=== PATIENT | female | born 1970 | race American Indian/Alaskan Native ===

== ENCOUNTER 2016-11-09 17:55 | Emergency (ER) | payer OTHER ==
[2016-11-09] MEDS ORDERED: CATAPRES PO ONE ×2 (22:54→23:07)
[2016-11-09] MEDS ORDERED: FLEXERIL PO ONE (23:07)
[2016-11-09] MEDS ORDERED: TORADOL IM ONE (23:07)
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
--- NOTE | 2016-11-10 01:55 | Cat Scan Report ---
FINAL REPORT EXAM: CT HEAD/BRAIN WO CON HISTORY: high BP and HOWELL TECHNIQUE: Noncontrast CT axial images of the brain. PRIORS: None. FINDINGS: No parenchymal mass, mass effect, hemorrhage, midline shift or hydrocephalus. No evidence of acute cortical infarct. No abnormal, extra-axial fluid or air collection. Osseous calvarium grossly intact. IMPRESSION: 1. No acute intracranial findings.
[2016-11-10 02:16] VITALS: BP 151/89
== END 2016-11-10 02:53 | disposition home or self-care (01) ==
LOC: ED 17:55
DX: R51 Headache (principal); S16.1XXA Strain of muscle, fascia and tendon at neck level, initial encounter; S46.911A Strain of unspecified muscle, fascia and tendon at shoulder and upper arm level, right arm, initial encounter; S39.012A Strain of muscle, fascia and tendon of lower back, initial encounter; I10 Essential (primary) hypertension; Z79.899 Other long term (current) drug therapy; Z79.1 Long term (current) use of non-steroidal anti-inflammatories (NSAID); V89.2XXA Person injured in unspecified motor-vehicle accident, traffic, initial encounter; Y93.89 Activity, other specified; Y99.8 Other external cause status; Y92.488 Other paved roadways as the place of occurrence of the external cause
CPT/HCPCS: 70450; 81025; 96372; 99284; J1885

== ENCOUNTER 2021-09-30 00:20 | Inpatient (IN) | payer SELFPAY ==
[2021-09-30] MEDS ORDERED: SODIUM CHLORIDE 0.9% 1000 ML 1,000 ML IV ONE (00:34)
--- NOTE | 2021-09-30 00:40 | Emergency Department Report ---
ED Altered Mental Status HPI - General Stated Complaint: ALTERED MENTAL STATUS PUI?: No Time Seen by Provider: 09/30/21 00:29 Source: patient, EMS Limitations: No Limitations - History of Present Illness Initial Comments: Chief complaint: Altered mental status, high blood sugar HPI: This is a 51-year-old female with history of non insulin dependent diabetes, hypertension who presents with altered mental status. Patient initially unable to answer questions per EMS. Patient was able to answer my questions. She denies any pain. She is able to tell her name. She is able to give location. Accu-Chek read "high" per EMS report. Family member called emergency department. Family member reported abscess in the vaginal rectal region. Patient did admit to pelvic irritation after being questioned. MD Complaint: altered mental status -: Gradual, hour(s) (1 hour) Consistency of Symptoms: waxing and waning Context: diabetes Associated Symptoms: denies other symptoms Treatments Prior to Arrival: other pre-hosp med (EMS transportation) - Related Data Previous Rx's Medication Instructions Recorded Last Taken Type Cyclobenzaprine [Flexeril] 10 mg PO TID PRN #20 tablet 11/10/16 Unknown Rx Ibuprofen [Motrin 600 MG tab] 600 mg PO Q8H PRN #30 tablet 11/10/16 Unknown Rx carvediloL [Coreg] 12.5 mg PO BID #60 tablet 11/10/16 Unknown Rx Allergies Allergy/AdvReac Type Severity Reaction Status Date / Time No Known Allergies Allergy Unverified 11/09/16 18:31 ED Review of Systems ROS: Stated complaint: ALTERED MENTAL STATUS Other details as noted in HPI Comment: All other systems reviewed and negative Constitutional: malaise Respiratory: denies: cough, shortness of breath Cardiovascular: denies: chest pain Gastrointestinal: denies: abdominal pain, nausea, vomiting ED Past Medical Hx - Past Medical History Previous Medical History?: Yes Hx Hypertension: Yes Hx Diabetes: Yes - Surgical History Past Surgical History?: No - Family History Family history: diabetes, hypertension - Social History Smoking Status: Never Smoker Substance Use Type: None - Medications Home Medications: Home Medications Medication Instructions Recorded Confirmed Last Taken Type Cyclobenzaprine [Flexeril] 10 mg PO TID PRN #20 tablet 11/10/16 Unknown Rx Ibuprofen [Motrin 600 MG tab] 600 mg PO Q8H PRN #30 tablet 11/10/16 Unknown Rx carvediloL [Coreg] 12.5 mg PO BID #60 tablet 11/10/16 Unknown Rx ED Physical Exam - General General appearance: alert, other (Slightly lethargic but able to answer que stions, appears delirious) - Head Head exam: Present: atraumatic, normocephalic - Eye Eye exam: Present: normal appearance - ENT ENT exam: Present: mucous membranes moist - Neck Neck exam: Present: normal inspection, full ROM - Respiratory Respiratory exam: Present: normal lung sounds bilaterally. Absent: respiratory distress, wheezes, rales, rhonchi - Cardiovascular Cardiovascular Exam: Present: regular rate, normal rhythm, normal heart sounds. Absent: systolic murmur, diastolic murmur, rubs, gallop - GI/Abdominal GI/Abdominal exam: Present: soft, normal bowel sounds. Absent: distended, tenderness, guarding, rebound - External exam: Present: other (Diffuse erythematous excoriation irritated skin involving the perineum suprapubic perirectal regions with skin ulcer at the right gluteus with purulent drainage ) - Extremities Exam Extremities exam: Present: normal inspection - Back Exam Back exam: Present: normal inspection - Neurological Exam Neurological exam: Present: alert, oriented X3 - Psychiatric Psychiatric exam: Present: normal affect, normal mood - Skin Skin exam: Present: rash ED Course - Reevaluation(s) Reevaluation #1: 09/30/21 02:31 Received values of lactic acid 4.8 and glucose greater than 1200. Requested patient is wait to initiate sepsis order set and DKA treatment - Lab Data Result diagrams: 09/30/21 00:54 09/30/21 00:54 Lab Results 09/30/21 09/30/21 09/30/21 Range/Units 00:54 00:54 00:54 WBC 16.9 H (4.5-11.0) K/mm3 RBC 5.14 H (3.65-5.03) M/mm3 Hgb 13.2 (10.1-14.3) gm/dl Hct 46.0 H (30.3-42.9) % MCV 90 (79-97) fl MCH 26 L (28-32) pg MCHC 29 L (30-34) % RDW 14.8 (13.2-15.2) % Plt Count 583 H (140-440) K/mm3 Lymph % (Auto) 7.0 L (13.4-35.0) % [place] % (Auto) 6.8 (0.0-7.3) % Eos % (Auto) 0.1 (0.0-4.3) % Baso % (Auto) 0.8 (0.0-1.8) % Lymph # (Auto) 1.2 (1.2-5.4) K/mm3 [place] # (Auto) 1.1 H (0.0-0.8) K/mm3 Eos # (Auto) 0.0 (0.0-0.4) K/mm3 Baso # (Auto) 0.1 (0.0-0.1) K/mm3 Seg Neutrophils % 85.3 H (40.0-70.0) % Seg Neutrophils # 14.4 H (1.8-7.7) K/mm3 PT (12.2-14.9) Sec. INR (0.87-1.13) VBG pH (7.320-7.420) Sodium 144 (137-145) mmol/L Potassium 3.8 (3.6-5.0) mmol/L Chloride 92.6 L (98-107) mmol/L Carbon Dioxide 17 L (22-30) mmol/L Anion Gap 38 mmol/L BUN 33 H (7-17) mg/dL Creatinine 1.7 H (0.6-1.2) mg/dL Estimated GFR 38 ml/min BUN/Creatinine Ratio 19 % Glucose 1245 H* (65-100) mg/dL Lactic Acid 4.80 H* (0.7-2.0) mmol/L Calcium 9.5 (8.4-10.2) mg/dL Total Bilirubin 0.60 (0.1-1.2) mg/dL AST 17 (5-40) units/L ALT 27 (7-56) units/L Alkaline Phosphatase 123 (35-129) units/L Total Protein 8.0 (6.3-8.2) g/dL Albumin 3.3 L (3.9-5) g/dL Albumin/Globulin Ratio 0.7 % Salicylates (2.8-20.0) mg/dL Acetaminophen (10.0-30.0) ug/mL Plasma/Serum Alcohol (0-0.07) % 09/30/21 09/30/21 09/30/21 Range/Units 00:54 00:54 00:54 WBC (4.5-11.0) K/mm3 RBC (3.65-5.03) M/mm3 Hgb (10.1-14.3) gm/dl Hct (30.3-42.9) % MCV (79-97) fl MCH (28-32) pg MCHC (30-34) % RDW (13.2-15.2) % Plt Count (140-440) K/mm3 Lymph % (Auto) (13.4-35.0) % [place] % (Auto) (0.0-7.3) % Eos % (Auto) (0.0-4.3) % Baso % (Auto) (0.0-1.8) % Lymph # (Auto) (1.2-5.4) K/mm3 [place] # (Auto) (0.0-0.8) K/mm3 Eos # (Auto) (0.0-0.4) K/mm3 Baso # (Auto) (0.0-0.1) K/mm3 Seg Neutrophils % (40.0-70.0) % Seg Neutrophils # (1.8-7.7) K/mm3 PT 15.7 H (12.2-14.9) Sec. INR 1.13 (0.87-1.13) VBG pH (7.320-7.420) Sodium (137-145) mmol/L Potassium (3.6-5.0) mmol/L Chloride (98-107) mmol/L Carbon Dioxide (22-30) mmol/L Anion Gap mmol/L BUN (7-17) mg/dL Creatinine (0.6-1.2) mg/dL Estimated GFR ml/min BUN/Creatinine Ratio % Glucose (65-100) mg/dL Lactic Acid (0.7-2.0) mmol/L Calcium (8.4-10.2) mg/dL Total Bilirubin (0.1-1.2) mg/dL AST (5-40) units/L ALT (7-56) units/L Alkaline Phosphatase (35-129) units/L Total Protein (6.3-8.2) g/dL Albumin (3.9-5) g/dL Albumin/Globulin Ratio % Salicylates < 0.3 L (2.8-20.0) mg/dL Acetaminophen (10.0-30.0) ug/mL Plasma/Serum Alcohol < 0.01 (0-0.07) % 09/30/21 09/30/21 09/30/21 Range/Units 00:54 00:54 02:15 WBC (4.5-11.0) K/mm3 RBC (3.65-5.03) M/mm3 Hgb (10.1-14.3) gm/dl Hct (30.3-42.9) % MCV (79-97) fl MCH (28-32) pg MCHC (30-34) % RDW (13.2-15.2) % Plt Count (140-440) K/mm3 Lymph % (Auto) (13.4-35.0) % [place] % (Auto) (0.0-7.3) % Eos % (Auto) (0.0-4.3) % Baso % (Auto) (0.0-1.8) % Lymph # (Auto) (1.2-5.4) K/mm3 [place] # (Auto) (0.0-0.8) K/mm3 Eos # (Auto) (0.0-0.4) K/mm3 Baso # (Auto) (0.0-0.1) K/mm3 Seg Neutrophils % (40.0-70.0) % Seg Neutrophils # (1.8-7.7) K/mm3 PT (12.2-14.9) Sec. INR (0.87-1.13) VBG pH 7.246 L (7.320-7.420) Sodium (137-145) mmol/L Potassium (3.6-5.0) mmol/L Chloride (98-107) mmol/L Carbon Dioxide (22-30) mmol/L Anion Gap mmol/L BUN (7-17) mg/dL Creatinine (0.6-1.2) mg/dL Estimated GFR ml/min BUN/Creatinine Ratio % Glucose (65-100) mg/dL Lactic Acid 4.10 H* (0.7-2.0) mmol/L Calcium (8.4-10.2) mg/dL Total Bilirubin (0.1-1.2) mg/dL AST (5-40) units/L ALT (7-56) units/L Alkaline Phosphatase (35-129) units/L Total Protein (6.3-8.2) g/dL Albumin (3.9-5) g/dL Albumin/Globulin Ratio % Salicylates (2.8-20.0) mg/dL Acetaminophen 5.0 L (10.0-30.0) ug/mL Plasma/Serum Alcohol (0-0.07) % - Radiology Data Radiology results: report reviewed Patient Name: FELIBERTO DIAMOND Gender: Female Date of : 1970 Referring Provider: MARCELLE BECERRA Organization: [facility] Accession Number: [id number] Requested Date: September 30, 2021 03:18 Report Status: Final Requested Procedure: 1 Procedure Description: CT head/brain wo con Modality: CT Findings Reporting MD: Isma Chandra Dictation Time: September 30, 2021 02:58 [employer] Dispatcher: Not available English Faculty Member Date: CT head without contrast INDICATION : Altered Mental Status. TECHNIQUE: Axial imaging performed from the skull apex through the skull base without the use of contrast. All CT scans at this location are performed using CT dose reduction for ALARA by means of automated exposure control. COMPARISON: None FINDINGS: Parenchyma: No acute intracranial hemorrhage or parenchymal abnormality. Ventricles: Ventricles are normal in size and appear symmetric. Soft tissues: Soft tissues including the orbits appear normal. Bones: No acute osseous abnormality. Sinuses: Sinuses and mastoid air cells are clear. IMPRESSION: No acute abnormality. Signer Name: Isma Chandra MD Signed: 09/30/2021 2:58 AM Workstation Name: [id number] Patient Name: FELIBERTO DIAMOND Gender: Female Date of : 1970 Referring Provider: MARCELLE BECERRA Organization: [facility] Accession Number: [id number] Requested Date: September 30, 2021 03:26 Report Status: Final Requested Procedure: 1 Procedure Description: CT abdomen pelvis w con Modality: CT Findings Reporting MD: Isma Chandra Dictation Time: September 30, 2021 03:00 [employer] Dispatcher: Not available English Faculty Member Date: CT ABDOMEN AND PELVIS WITH CONTRAST HISTORY: Cellulitis RIGHT gluteal ulcer, possible fistula. COMPARISON: None. TECHNIQUE: CT images of the abdomen and pelvis were obtained following administration of intravenous contrast. All CT scans at this location are performed using CT dose reduction for ALARA by means of automated exposure control. CONTRAST: 100 ml of intravenous contrast administered. FINDINGS: Lungs/bones: Lung bases are clear. There are degenerative changes in the spine and pelvis with no acute osseous abnormality identified. Abdomen/pelvis: There is hepatic steatosis. The liver is otherwise unremarkable. The gallbladder, spleen, pancreas, adrenals, right kidney, and proximal GI tract appear normal. There is mild left-sided hydronephrosis tracking to the distal ureter where a left paracentral uterine fibroid directly abuts the ureter decompresses the. The ovaries are unremarkable. No pelvic free fluid or acute colonic abnormality identified. The appendix and terminal ileum appear normal. IMPRESSION: 1. Mild left-sided hydronephrosis caused by mass effect from a left paracentral uterine fibroid. 2. No appreciable right gluteal ulcer or subcutaneous gas demonstrated on this exam. Signer Name: Isma Chandra MD Signed: 09/30/2021 3:00 AM Workstation Name: [id number] - Medical Decision Making 1. Acute encephalopathy due to metabolic cause of hyperglycemia and infectious cause of delirium. 2. Sepsis due to superimposed cellulitis, purulence exuding from right gluteal ulcer concerning for fistula 3. Diffuse candidal infection 4. Uterine fibroid causing mild hydronephrosis unclear chronology, no indication of pyonephrosis such as debris layering, perinephric stranding. - Differential Diagnosis Metabolic encephalopathy due to uremia versus metabolic acidosis, delirium Critical Care Time: Yes Critical care time in (mins) excluding proc time.: 40 Critical care attestation.: If time is entered above; I have spent that time in minutes in the direct care of this critically ill patient, excluding procedure time. 40 minutes of critical care time excluding procedures were used in the care of the patient. I came immediately to the bedside upon patient's arrival. I obtained history from EMS at the bedside. I discussed treatment plan with the nursing team members. I reviewed electronic record. I was concerned for sepsis. There is concern for DKA. Patient required multiple interventions and reassessments. ED Disposition Clinical Impression: Sepsis, Cellulitis and abscess of buttock, Candidiasis of genitalia, Acute m etabolic encephalopathy, Diabetic ketoacidosis, Uterine fibroid Disposition: 09 ADMITTED INPATIENT Is pt being admited?: Yes Condition: Critical
--- NOTE | 2021-09-30 00:56 | XRay Report ---
CHEST 1 VIEW INDICATION: Altered Mental Status. COMPARISON: None FINDINGS: SUPPORT DEVICES: None. HEART: Within normal limits. LUNGS/PLEURA: No acute air space or interstitial disease. ADDITIONAL FINDINGS: None. IMPRESSION: 1. No acute findings. Signer Name: Isma Chandra MD Signed: 09/30/2021 12:51 AM Workstation Name: [id number]
[2021-09-30] MEDS ORDERED: CLINDAMYCIN 600 MG/50 mL 600 MG/50 ML BAG IV ONE (01:02)
[2021-09-30 01:33] LABS: Albumin 3.3 g/dL (3.9-5); Calcium 9.5 mg/dL (8.4-10.2)
[2021-09-30] MEDS ORDERED: FLUCONAZOLE 200 MG 200 MG/100 ML BAG IV ONE (01:33)
[2021-09-30 01:44] LABS: Basophils # (Auto) 0.1 K/mm3 (0.0-0.1); Eosinophils % (Auto) 0.1 % (0.0-4.3); Lymphocytes # (Auto) 1.2 K/mm3 (1.2-5.4); Mean Corpuscular HGB Conc 29 % (30-34); Mean Corpuscular Volume 90 fl (79-97); Monocytes # (Auto) 1.1 K/mm3 (0.0-0.8); Monocytes % (Auto) 6.8 % (0.0-7.3); Platelet Count 583 K/mm3 (140-440); Red Blood Count 5.14 M/mm3 (3.65-5.03); Red Cell Distribution Width 14.8 % (13.2-15.2)
[2021-09-30 01:46] LABS: Basophils % (Auto) 0.8 % (0.0-1.8); Hemoglobin 13.2 gm/dl (10.1-14.3)
[2021-09-30 01:50] LABS: INR 1.13 (0.87-1.13)
[2021-09-30] MEDS ORDERED: SODIUM CHLORIDE 0.9% 1000 ML IV SOLN IV ONE (02:31)
[2021-09-30] MEDS ORDERED: INSULIN REGULAR, HUMAN 100 UNITS in SODIUM CHLORIDE 0.9% 99 ML IV SCH (03:00)
[2021-09-30] MEDS ORDERED: HYDROmorphone 1 MG/1 ML INJ IV PRN (03:23)
[2021-09-30] MEDS ORDERED: ALBUTEROL 2.5 MG/3 ML NEBU IH PRN (03:23)
[2021-09-30] MEDS ORDERED: ACETAMINOPHEN 325 MG TAB PO PRN (03:23)
[2021-09-30] MEDS ORDERED: ONDANSETRON 4 MG/2 ML INJ IV PRN (03:23)
[2021-09-30] MEDS ORDERED: DEXTROSE 50% IN WATER (25GM) 50 ML SYRINGE IV PRN (03:23)
[2021-09-30] MEDS ORDERED: MORPHINE 2 MG/1 ML INJ IV PRN (03:23)
--- NOTE | 2021-09-30 03:32 | History and Physical Report ---
History of Present Illness Date of examination: 09/30/21 Date of admission: 09/30/21 Chief complaint: Altered mental status Hyperglycemia History of present illness: 51-year-old female with history of insulin dependent diabetes, hypertension was brought to the emergency room because of altered mental status. Patient initially unable to answer questions per EMS. Patient was able to answer my questions. She denies any pain. She is able to tell her name. She is able to give location. Accu-Chek read "high" per EMS report.Family member called emergency department. Family member reported abscess in the vaginal rectal region. In the emergency room patient is found to have DKA and sepsis. Patient blood glucose is 1245, anion gap 38 bicarb 17 lactic acid 4.80, WBC 16.9. Patient has abscess cellulitis of the buttock So we are going to admit the patient to the ICU. We put the patient on DKA pathway, IV fluid and insulin drip, Zosyn 4.5 g IV every 8 hours and vancomycin we will consult critical care as well as surgery for evaluation Past History Past Medical History: diabetes, hypertension Medications and Allergies Allergies Allergy/AdvReac Type Severity Reaction Status Date / Time No Known Allergies Allergy Unverified 11/09/16 18:31 Home Medications Medication Instructions Recorded Confirmed Last Taken Type Cyclobenzaprine [Flexeril] 10 mg PO TID PRN #20 tablet 11/10/16 Unknown Rx Ibuprofen [Motrin 600 MG tab] 600 mg PO Q8H PRN #30 tablet 11/10/16 Unknown Rx carvediloL [Coreg] 12.5 mg PO BID #60 tablet 11/10/16 Unknown Rx Active Meds: Active Medications Acetaminophen (Acetaminophen 325 Mg Tab) 650 mg PO Q4H PRN PRN Reason: Pain MILD(1-3)/Fever >100.5/HOWELL Albuterol (Albuterol 2.5 Mg/3 Ml Nebu) 2.5 mg IH Q4HRT PRN PRN Reason: Shortness Of Breath Albuterol/Ipratropium (Ipratropium/Albuterol Sulfate 3 Ml Ampul.Neb) 1 ampul IH Q6HRT ABRAN Dextrose (Dextrose 50% In Water (25gm) 50 Ml Syringe) 0 ml IV Q30MIN PRN; Protocol PRN Reason: Hypoglycemia Famotidine (Famotidine 20 Mg/2 Ml Inj) 20 mg IV BID ABRAN Heparin Sodium (Porcine) (Heparin 5,000 Unit/1 Ml Vial) 5,000 unit SUB-Q Q8HR ABRAN Hydromorphone HCl (Hydromorphone 1 Mg/1 Ml Inj) 0.5 mg IV Q3H PRN PRN Reason: Pain , Severe (7-10) Insulin Human Regular 100 (units/ Sodium Chloride) 100 mls @ 10 mls/hr IV TITR ABRAN; Protocol Insulin Human Regular 100 (units/ Sodium Chloride) 100 mls @ 1 mls/hr IV TITR ABRAN; Protocol Sodium Chloride (Nacl 0.45% 1000 Ml) 1,000 mls @ 150 mls/hr IV DIRECT ABRAN Potassium Chloride/Dextrose/Sod Cl (D5w/0.45% Nacl/Kcl 20 Meq) 20 meq in 1,000 mls @ 125 mls/hr IV DIRECT ABRAN Vancomycin HCl (Vancomycin/Ns 1 Gm/250 Ml) 1 gm in 250 mls @ 166.667 mls/hr IV Q12H ABRAN; Protocol Piperacillin Sod/Tazobactam Sod (Zosyn/Ns 4.5gm/100ml) 4.5 gm in 100 mls @ 200 mls/hr IV Q8H ABRAN; Protocol Morphine Sulfate (Morphine 2 Mg/1 Ml Inj) 2 mg IV Q4H PRN PRN Reason: Pain, Moderate (4-6) Ondansetron HCl (Ondansetron 4 Mg/2 Ml Inj) 4 mg IV Q8H PRN PRN Reason: Nausea And Vomiting Sodium Chloride (Sodium Chloride 0.9% 10 Ml Flush Syringe) 10 ml IV BID ABRAN Sodium Chloride (Sodium Chloride 0.9% 10 Ml Flush Syringe) 10 ml IV PRN PRN PRN Reason: LINE FLUSH Review of Systems All systems: negative Constitutional: lethargy Genitourinary Female: vaginal itching, other (Vaginal candidiasis. Buttock perineal abscess cellulitis) Neurological: change in mentation Exam - Constitutional General appearance: Present: severe distress - EENT Eyes: Present: PERRL ENT: hearing intact, clear oral mucosa - Neck Neck: Present: supple, normal ROM - Respiratory Respiratory effort: normal Respiratory: bilateral: diminished - Cardiovascular Heart Sounds: Present: S1 & S2. Absent: rub, click - Extremities Extremities: pulses symmetrical, No edema Peripheral Pulses: within normal limits - Abdominal General gastrointestinal: Present: soft, non-tender, non-distended, normal bowel sounds Female genitourinary: Present: normal, other (Vaginal candidiasis.Present: other (Diffuse erythematous excoriation irritated skin involving the perineum suprapubic perirectal regions with skin ulcer at the right gluteus with purulent drainage )) - Integumentary Integumentary: Present: clear, warm, dry - Musculoskeletal Musculoskeletal: gait normal, strength equal bilaterally - Psychiatric Psychiatric: appropriate mood/affect, intact judgment & insight - Neurologic Neurologic: CNII-XII intact, moves all extremities Results - Labs CBC & Chem 7: 09/30/21 00:54 09/30/21 00:54 Labs: Laboratory Last Values WBC 16.9 K/mm3 (4.5-11.0) H 09/30/21 00:54 RBC 5.14 M/mm3 (3.65-5.03) H 09/30/21 00:54 Hgb 13.2 gm/dl (10.1-14.3) 09/30/21 00:54 Hct 46.0 % (30.3-42.9) H 09/30/21 00:54 MCV 90 fl (79-97) 09/30/21 00:54 MCH 26 pg (28-32) L 09/30/21 00:54 MCHC 29 % (30-34) L 09/30/21 00:54 RDW 14.8 % (13.2-15.2) 09/30/21 00:54 Plt Count 583 K/mm3 (140-440) H 09/30/21 00:54 Lymph % (Auto) 7.0 % (13.4-35.0) L 09/30/21 00:54 [place] % (Auto) 6.8 % (0.0-7.3) 09/30/21 00:54 Eos % (Auto) 0.1 % (0.0-4.3) 09/30/21 00:54 Baso % (Auto) 0.8 % (0.0-1.8) 09/30/21 00:54 Lymph # (Auto) 1.2 K/mm3 (1.2-5.4) 09/30/21 00:54 [place] # (Auto) 1.1 K/mm3 (0.0-0.8) H 09/30/21 00:54 Eos # (Auto) 0.0 K/mm3 (0.0-0.4) 09/30/21 00:54 Baso # (Auto) 0.1 K/mm3 (0.0-0.1) 09/30/21 00:54 Seg Neutrophils % 85.3 % (40.0-70.0) H 09/30/21 00:54 Seg Neutrophils # 14.4 K/mm3 (1.8-7.7) H 09/30/21 00:54 PT 15.7 Sec. (12.2-14.9) H 09/30/21 00:54 INR 1.13 (0.87-1.13) 09/30/21 00:54 VBG pH 7.246 (7.320-7.420) L 09/30/21 00:54 Sodium 144 mmol/L (137-145) 09/30/21 00:54 Potassium 3.8 mmol/L (3.6-5.0) 09/30/21 00:54 Chloride 92.6 mmol/L (98-107) L 09/30/21 00:54 Carbon Dioxide 17 mmol/L (22-30) L 09/30/21 00:54 Anion Gap 38 mmol/L 09/30/21 00:54 BUN 33 mg/dL (7-17) H 09/30/21 00:54 Creatinine 1.7 mg/dL (0.6-1.2) H 09/30/21 00:54 Estimated GFR 38 ml/min 09/30/21 00:54 BUN/Creatinine Ratio 19 % 09/30/21 00:54 Glucose 1245 mg/dL (65-100) H* 09/30/21 00:54 Lactic Acid 4.10 mmol/L (0.7-2.0) H* 09/30/21 02:15 Calcium 9.5 mg/dL (8.4-10.2) 09/30/21 00:54 Total Bilirubin 0.60 mg/dL (0.1-1.2) 09/30/21 00:54 AST 17 units/L (5-40) 09/30/21 00:54 ALT 27 units/L (7-56) 09/30/21 00:54 Alkaline Phosphatase 123 units/L (35-129) 09/30/21 00:54 Total Protein 8.0 g/dL (6.3-8.2) 09/30/21 00:54 Albumin 3.3 g/dL (3.9-5) L 09/30/21 00:54 Albumin/Globulin Ratio 0.7 % 09/30/21 00:54 Salicylates < 0.3 mg/dL (2.8-20.0) L 09/30/21 00:54 Acetaminophen 5.0 ug/mL (10.0-30.0) L 09/30/21 00:54 Plasma/Serum Alcohol < 0.01 % (0-0.07) 09/30/21 00:54 - Imaging and Cardiology Chest x-ray: report reviewed Assessment and Plan VTE prophylaxis?: Chemical Plan of care discussed with patient/family: Yes - Patient Problems (1) Diabetic ketoacidosis Current Visit: Yes Status: Acute Plan to address problem: Admit the patient to the ICU. Nothing by mouth. Half-normal saline at the rate of 150 cc/h. Insulin drip as per DKA protocol. We do the serial BMP. We will also consult critical care evaluation. Recheck CBC BMP in the morning (2) Acute metabolic encephalopathy Current Visit: Yes Status: Acute Plan to address problem: Acute metabolic encephalopathy secondary to DKA and sepsis,Nothing by mouth. Half-normal saline at the rate of 150 cc/h. Zosyn 4.5 g IV every 8 hours. Vancomycin 1 g IV every 12 hours. Redo the blood culture wound culture. I nsulin drip as per DKA protocol. We do the serial BMP. We will also consult critical care evaluation. Recheck CBC BMP in the morning (3) Hypertension Current Visit: Yes Status: Acute Plan to address problem: Hydralazine 10 mg IV every 6 hours as needed. We will continue the home medication (4) Candidiasis of genitalia Current Visit: Yes Status: Acute Plan to address problem: Diflucan 200 mg IV daily. We also put nystatin powder (5) Cellulitis and abscess of buttock Current Visit: Yes Status: Acute Plan to address problem: Zosyn 4.5 g IV every 8 hours. Vancomycin 1 g IV every 12 hours. We will do the blood culture wound culture. We will consult surgery evaluation. Recheck CBC BMP in the morning (6) Sepsis Current Visit: Yes Status: Acute Plan to address problem: IV fluid half-normal saline at the rate of 150 cc/h. Zosyn 4.5 g IV every 8 hours. Vancomycin 1 g IV every 12 hours. We will do the blood culture wound culture. We will consult surgery evaluation. Recheck CBC BMP in the morning (7) DVT prophylaxis Current Visit: Yes Status: Acute Plan to address problem: Heparin 5000 units subcu every 8 hours for DVT prophylaxis. Pepcid 20 mg IV every 12 hours for GI prophylaxis. Patient is a full code
[2021-09-30] MEDS ORDERED: FLUCONAZOLE 200 MG 200 MG/100 ML BAG IV SCH (04:00)
[2021-09-30] MEDS ORDERED: VANCOMYCIN PHARMACY TO DOSE IV SCH (04:00)
[2021-09-30] MEDS ORDERED: PIPERACIL/TAZOBACTA 4.5/NS 100 4.5 GM/100 ML VIAL IV SCH (04:00)
[2021-09-30] MEDS ORDERED: SODIUM CHLORIDE 0.45% 1000 ML 1,000 ML IV SCH (04:00)
[2021-09-30] MEDS ORDERED: VANCOMYCIN/NS 1 GM/250 ML 1 GM/250 ML BAG IV SCH (04:00)
[2021-09-30] MEDS ORDERED: D5W/0.45% NACL/KCL 20 MEQ 20 MEQ/1,000 ML BAG IV SCH (04:00)
--- NOTE | 2021-09-30 04:02 | Cat Scan Report ---
CT head without contrast INDICATION : Altered Mental Status. TECHNIQUE: Axial imaging performed from the skull apex through the skull base without the use of con trast. All CT scans at this location are performed using CT dose reduction for ALARA by means of aut omated exposure control. COMPARISON: None FINDINGS: Parenchyma: No acute intracranial hemorrhage or parenchymal abnormality. Ventricles: Ventricles are normal in size and appear symmetric. Soft tissues: Soft tissues including the orbits appear normal. Bones: No acute osseous abnormality. Sinuses: Sinuses and mastoid air cells are clear. IMPRESSION: No acute abnormality. Signer Name: Isma Chandra MD Signed: 09/30/2021 3:58 AM Workstation Name: [id number]
--- NOTE | 2021-09-30 04:04 | Cat Scan Report ---
CT ABDOMEN AND PELVIS WITH CONTRAST HISTORY: Cellulitis RIGHT gluteal ulcer, possible fistula. COMPARISON: None. TECHNIQUE: CT images of the abdomen and pelvis were obtained following administration of intravenous contrast. All CT scans at this location are performed using CT dose reduction for ALARA by means of automated exposure control. CONTRAST: 100 ml of intravenous contrast administered. FINDINGS: Lungs/bones: Lung bases are clear. There are degenerative changes in the spine and pelvis with no ac [place] osseous abnormality identified. Abdomen/pelvis: There is hepatic steatosis. The liver is otherwise unremarkable. The gallbladder, sp dixie, pancreas, adrenals, right kidney, and proximal GI tract appear normal. There is mild left-sided hydronephrosis tracking to the distal ureter where a left paracentral uterin e fibroid directly abuts the ureter decompresses the. The ovaries are unremarkable. No pelvic free fl uid or acute colonic abnormality identified. The appendix and terminal ileum appear normal. IMPRESSION: 1. Mild left-sided hydronephrosis caused by mass effect from a left paracentral uterine fibroid. 2. No appreciable right gluteal ulcer or subcutaneous gas demonstrated on this exam. Signer Name: Isma Chandra MD Signed: 09/30/2021 4:00 AM Workstation Name: [email or web address]
[2021-09-30] MEDS ORDERED: VANCOMYCIN 2,000 MG in SODIUM CHLORIDE 0.9% 500 ML 500 ML IV ONE (04:30)
[2021-09-30] MEDS: INSULIN REGULAR, HUMAN 100 UNITS in SODIUM CHLORIDE 0.9% 99 ML IV SCH ×2 (04:46→19:55)
[2021-09-30] MEDS ORDERED: SODIUM CHLORIDE 0.9% 1000 ML 3,000 ML IV ONE (06:00)
[2021-09-30] MEDS ORDERED: PIPERACIL-TAZO 2.25 GM/50 ML 2.25 GM/50 ML BAG IV SCH (06:00)
--- NOTE | 2021-09-30 07:21 | Event Note ---
Date: 09/30/21 I was asked to see the patient for restraints. Patient was altered and being admitted. She was pulling at the IV and would not sit still. She could not be redirected. Based on that, wrist restraints were applied until she was more lucid.
[2021-09-30 07:24] LABS: Blood Urea Nitrogen TNR mg/dL (7-17)
[2021-09-30 07:25] LABS: BUN/Creatinine Ratio TNR; Calcium TNR mg/dL (8.4-10.2); Hemolysis Index TNR
--- NOTE | 2021-09-30 08:07 | Progress Note ---
Assessment and Plan Assessment and plan: History of present illness: 51-year-old female with history of insulin dependent diabetes, hypertension was brought to the emergency room because of altered mental status. Patient initially unable to answer questions per EMS. Patient was able to answer my questions. She denies any pain. She is able to tell her name. She is able to give location. Accu-Chek read "high" per EMS report.Family member called emergency department. Family member reported abscess in the vaginal rectal region. Admitted for DKA, Cellulitis to ICU. Hospital Course: 09/30/2021: Extremely dehydrated. Fluid resuscitation with D5 + 40 KCL due to hypernatremia and hyperkalemia. BG improving. Cellulitis of buttock eval by Gen surgery, no intervention at this time. Will medically manage with abx. Assessment and Plan: (1) Diabetic ketoacidosis Current Visit: Yes Status: Acute Plan to address problem: Likely precipitatedby buttock cellulitis. Possibly noncompliance/poor diabetic control NPO Fluid and Insulin gtt per DKA protocol Management of cellulitis as outlined below serial BMP. CCM consulted Recheck CBC BMP in the morning (2) Acute metabolic encephalopathy Current Visit: Yes Status: Acute Plan to address problem: Acute metabolic encephalopathy secondary to DKA and sepsis Management of DKA and sepsis as outlined. (3) Severe Sepsis POA Current Visit: Yes Status: Acute Plan to address problem: IV fluid half-normal saline at the rate of 150 cc/h. Cefepime 1 g IV every 8 hours. Vancomycin 1 g IV every 12 hours. blood culture wound culture. consult gen surgery follow wbc/lactic acid (4) Cellulitis and abscess of buttock Current Visit: Yes Status: Acute Plan to address problem: IV fluid half-normal saline at the rate of 150 cc/h. Cefepime 1 g IV every 8 hours. Vancomycin 1 g IV every 12 hours. blood culture wound culture. consult gen surgery (5) Hypertension Current Visit: Yes Status: Acute Plan to address problem: Labetalol 10 mg IV every 4 hours as needed. Resume home medication once pt can tolerate oral intake (6) Candidiasis of genitalia Current Visit: Yes Status: Acute Plan to address problem: Diflucan 200 mg IV daily. We also put nystatin powder (7) DVT prophylaxis Current Visit: Yes Status: Acute Plan to address problem: Heparin 5000 units subcu every 8 hours for DVT prophylaxis. Pepcid 20 mg IV every 12 hours for GI prophylaxis. Patient is a full code History Interval history: remained encephalopathic on exam. confused. answers some yes/no qeustions. Appears very dehydrated . oropharynx very dry. Hospitalist Physical - Physical exam Narrative exam: - General General appearance: alert, other (Slightly lethargic but able to answer questions, appears delirious). - Head Head exam: Present: atraumatic, normocephalic - Eye Eye exam: Present: normal appearance - ENT ENT exam: Present: mucous membranes very dry - Neck Neck exam: Present: normal inspection, full ROM - Respiratory Respiratory exam: Present: normal lung sounds bilaterally. Absent: respiratory distress, wheezes, rales, rhonchi - Cardiovascular Cardiovascular Exam: Present: regular rate, normal rhythm, normal heart sounds. Absent: systolic murmur, diastolic murmur, rubs, gallop - GI/Abdominal GI/Abdominal exam: Present: soft, normal bowel sounds. Absent: distended, tenderness, guarding, rebound - External exam: Present: other (Diffuse erythematous excoriation irritated skin involving the perineum suprapubic perirectal regions with skin ulcer at the right gluteus with purulent drainage ) - Extremities Exam Extremities exam: Present: normal inspection - Back Exam Back exam: Present: normal inspection - Neurological Exam Neurological exam: Present: alert, oriented X3 - Psychiatric Psychiatric exam: Present: normal affect, normal mood - Skin Skin exam: Present: rash - Constitutional Vitals: Temp Pulse Resp BP Pulse Ox 119 H 26 H 160/102 94 09/30/21 07:45 09/30/21 07:45 09/30/21 07:45 09/30/21 07:45 General appearance: Present: severe distress Results - Labs CBC & Chem 7: 10/01/21 05:45 10/01/21 05:45 Labs: Laboratory Last Values WBC 16.9 K/mm3 (4.5-11.0) H 09/30/21 00:54 RBC 5.14 M/mm3 (3.65-5.03) H 09/30/21 00:54 Hgb 13.2 gm/dl (10.1-14.3) 09/30/21 00:54 Hct 46.0 % (30.3-42.9) H 09/30/21 00:54 MCV 90 fl (79-97) 09/30/21 00:54 MCH 26 pg (28-32) L 09/30/21 00:54 MCHC 29 % (30-34) L 09/30/21 00:54 RDW 14.8 % (13.2-15.2) 09/30/21 00:54 Plt Count 583 K/mm3 (140-440) H 09/30/21 00:54 Lymph % (Auto) 7.0 % (13.4-35.0) L 09/30/21 00:54 [place] % (Auto) 6.8 % (0.0-7.3) 09/30/21 00:54 Eos % (Auto) 0.1 % (0.0-4.3) 09/30/21 00:54 Baso % (Auto) 0.8 % (0.0-1.8) 09/30/21 00:54 Lymph # (Auto) 1.2 K/mm3 (1.2-5.4) 09/30/21 00:54 [place] # (Auto) 1.1 K/mm3 (0.0-0.8) H 09/30/21 00:54 Eos # (Auto) 0.0 K/mm3 (0.0-0.4) 09/30/21 00:54 Baso # (Auto) 0.1 K/mm3 (0.0-0.1) 09/30/21 00:54 Seg Neutrophils % 85.3 % (40.0-70.0) H 09/30/21 00:54 Seg Neutrophils # 14.4 K/mm3 (1.8-7.7) H 09/30/21 00:54 PT 15.7 Sec. (12.2-14.9) H 09/30/21 00:54 INR 1.13 (0.87-1.13) 09/30/21 00:54 VBG pH 7.246 (7.320-7.420) L 09/30/21 00:54 Sodium TNR 09/30/21 05:58 Potassium TNR 09/30/21 05:58 Chloride TNR 09/30/21 05:58 Carbon Dioxide TNR 09/30/21 05:58 Anion Gap TNR 09/30/21 05:58 BUN TNR 09/30/21 05:58 Creatinine TNR 09/30/21 05:58 Estimated GFR TNR 09/30/21 05:58 BUN/Creatinine Ratio TNR 09/30/21 05:58 Glucose TNR 09/30/21 05:58 POC Glucose > 600 mg/dL (70-105) H 09/30/21 05:38 Lactic Acid 3.30 mmol/L (0.7-2.0) H* 09/30/21 05:27 Calcium TNR 09/30/21 05:58 Phosphorus 5.90 mg/dL (2.5-4.5) H 09/30/21 05:20 Magnesium 3.30 mg/dL (1.7-2.3) H 09/30/21 05:20 Total Bilirubin 0.60 mg/dL (0.1-1.2) 09/30/21 00:54 AST 17 units/L (5-40) 09/30/21 00:54 ALT 27 units/L (7-56) 09/30/21 00:54 Alkaline Phosphatase 123 units/L (35-129) 09/30/21 00:54 Total Protein 8.0 g/dL (6.3-8.2) 09/30/21 00:54 Albumin 3.3 g/dL (3.9-5) L 09/30/21 00:54 Albumin/Globulin Ratio 0.7 % 09/30/21 00:54 Salicylates < 0.3 mg/dL (2.8-20.0) L 09/30/21 00:54 Acetaminophen 5.0 ug/mL (10.0-30.0) L 09/30/21 00:54 Plasma/Serum Alcohol < 0.01 % (0-0.07) 09/30/21 00:54 Active Medications - Current Medications Current Medications: Generic Name Dose Route Start Last Admin Trade Name Freq PRN Reason Stop Dose Admin Acetaminophen 650 mg 09/30/21 03:23 Acetaminophen 325 Mg Tab PO Q4H PRN Pain MILD(1-3)/Fever >100.5/HOWELL Albuterol 2.5 mg 09/30/21 03:23 Albuterol 2.5 Mg/3 Ml Nebu IH Q4HRT PRN Shortness Of Breath Albuterol/Ipratropium 1 ampul 09/30/21 08:00 Ipratropium/Albuterol Sulfate 3 Ml Ampul.Neb IH Q6HRT ABRAN Dextrose 0 ml 09/30/21 03:23 Dextrose 50% In Water (25gm) 50 Ml Syringe IV Q30MIN PRN Hypoglycemia Protocol Famotidine 20 mg 09/30/21 10:00 Famotidine 20 Mg/2 Ml Inj IV QAM ABRAN Heparin Sodium (Porcine) 5,000 unit 09/30/21 06:00 Heparin 5,000 Unit/1 Ml Vial SUB-Q Q8HR [facility] Hydromorphone HCl 0.5 mg 09/30/21 03:23 Hydromorphone 1 Mg/1 Ml Inj IV Q3H PRN Pain , Severe (7-10) Insulin Human Regular 100 100 mls @ 1 mls/hr 09/30/21 04:00 09/30/21 07:30 units/ Sodium Chloride IV 8 units/hr TITR ABRAN 8 mls/hr Titration Protocol 1 UNITS/HR Sodium Chloride 1,000 mls @ 150 mls/hr 09/30/21 04:00 Nacl 0.45% 1000 Ml IV DIRECT ABRAN Potassium Chloride/Dextrose/Sod Cl 20 meq in 1,000 mls @ 125 mls/hr 09/30/21 04:00 D5w/0.45% Nacl/Kcl 20 Meq IV DIRECT ABRAN Fluconazole 100 mg in 50 mls @ 50 mls/hr 09/30/21 10:00 Diflucan/Ns 100 Mg/50 Ml IV 10/04/21 10:59 Q24HR [facility] Sodium Chloride 3,000 mls @ 999 mls/hr 09/30/21 06:00 Nacl 0.9% 1000 Ml IV 09/30/21 09:00 BOLUS ONE Vancomycin HCl 1,500 mg/ 530 mls @ 333.333 mls/hr 10/01/21 10:00 Sodium Chloride IV Q24HR ABRAN Cefepime HCl 2 gm in 100 mls @ 200 mls/hr 09/30/21 08:00 Cefepime/Ns 2 Gm/100 Ml IV Q12H [facility] Protocol Morphine Sulfate 2 mg 09/30/21 03:23 Morphine 2 Mg/1 Ml Inj IV Q4H PRN Pain, Moderate (4-6) Ondansetron HCl 4 mg 09/30/21 03:23 Ondansetron 4 Mg/2 Ml Inj IV Q8H PRN Nausea And Vomiting Sodium Chloride 10 ml 09/30/21 10:00 Sodium Chloride 0.9% 10 Ml Flush Syringe IV BID ABRAN Sodium Chloride 10 ml 09/30/21 03:23 Sodium Chloride 0.9% 10 Ml Flush Syringe IV PRN PRN LINE FLUSH
--- NOTE | 2021-09-30 08:38 | Consultation ---
History of Present Illness Consult date: 09/30/21 Reason for consult: other Requesting physician: LUCÍA NAVARRO - History of present illness History of present illness: 51-year-old female with history of insulin dependent diabetes, hypertension was brought to the emergency room because of altered mental status. Patient initially unable to answer questions per EMS. Patient was able to answer my questions. She denies any pain. She is able to tell her name. She is able to give location. Accu-Chek read "high" per EMS report.Family member [facility]. Family member reported abscess in the vaginal rectal region. CT abdo and pelvis reviewed No obvious abscess in the perirectal area. On exam no induration in the perianal area. 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 Will cont to follow with you. When medically resuscitated a diabetic regular diet would be ok. Past History Past Medical History: diabetes, hypertension Medications and Allergies Allergies Allergy/AdvReac Type Severity Reaction Status Date / Time No Known Allergies Allergy Unverified 11/09/16 18:31 Home Medications Medication Instructions Recorded Confirmed Last Taken Type Cyclobenzaprine [Flexeril] 10 mg PO TID PRN #20 tablet 11/10/16 Unknown Rx Ibuprofen [Motrin 600 MG tab] 600 mg PO Q8H PRN #30 tablet 11/10/16 Unknown Rx carvediloL [Coreg] 12.5 mg PO BID #60 tablet 11/10/16 Unknown Rx Active Meds: Active Medications Acetaminophen (Acetaminophen 325 Mg Tab) 650 mg PO Q4H PRN PRN Reason: Pain MILD(1-3)/Fever >100.5/HOWELL Albuterol (Albuterol 2.5 Mg/3 Ml Nebu) 2.5 mg IH Q4HRT PRN PRN Reason: Shortness Of Breath Albuterol/Ipratropium (Ipratropium/Albuterol Sulfate 3 Ml Ampul.Neb) 1 ampul IH Q6HRT ABRAN Carvedilol (Carvedilol 12.5 Mg Tab) 12.5 mg PO BID ABRAN Dextrose (Dextrose 50% In Water (25gm) 50 Ml Syringe) 0 ml IV Q30MIN PRN; Protocol PRN Reason: Hypoglycemia Famotidine (Famotidine 20 Mg/2 Ml Inj) 20 mg IV QAM ABRAN Heparin Sodium (Porcine) (Heparin 5,000 Unit/1 Ml Vial) 5,000 unit SUB-Q Q8HR ABRAN Hydromorphone HCl (Hydromorphone 1 Mg/1 Ml Inj) 0.5 mg IV Q3H PRN PRN Reason: Pain , Severe (7-10) Insulin Human Regular 100 (units/ Sodium Chloride) 100 mls @ 1 mls/hr IV TITR ABRAN; Protocol Last Titration: 09/30/21 07:30 Dose: 8 units/hr, 8 mls/hr Sodium Chloride (Nacl 0.45% 1000 Ml) 1,000 mls @ 150 mls/hr IV DIRECT ABRAN Potassium Chloride/Dextrose/Sod Cl (D5w/0.45% Nacl/Kcl 20 Meq) 20 meq in 1,000 mls @ 125 mls/hr IV DIRECT ABRAN Fluconazole (Diflucan/Ns 100 Mg/50 Ml) 100 mg in 50 mls @ 50 mls/hr IV Q24HR ABRAN Stop: 10/04/21 10:59 Sodium Chloride (Nacl 0.9% 1000 Ml) 3,000 mls @ 999 mls/hr IV BOLUS ONE Stop: 09/30/21 09:00 Vancomycin HCl 1,500 mg/ (Sodium Chloride) 530 mls @ 333.333 mls/hr IV Q24HR ABRAN Cefepime HCl (Cefepime/Ns 2 Gm/100 Ml) 2 gm in 100 mls @ 200 mls/hr IV Q12H [facility]; Protocol Labetalol HCl (Labetalol 20 Mg/4 Ml Inj) 10 mg IV Q4HR PRN PRN Reason: SBP > 160, hold if HR <70 Morphine Sulfate (Morphine 2 Mg/1 Ml Inj) 2 mg IV Q4H PRN PRN Reason: Pain, Moderate (4-6) Ondansetron HCl (Ondansetron 4 Mg/2 Ml Inj) 4 mg IV Q8H PRN PRN Reason: Nausea And Vomiting Sodium Chloride (Sodium Chloride 0.9% 10 Ml Flush Syringe) 10 ml IV BID ABRAN Sodium Chloride (Sodium Chloride 0.9% 10 Ml Flush Syringe) 10 ml IV PRN PRN PRN Reason: LINE FLUSH Exam Vital Signs BP Pulse Ox 138/84 81 L 09/30/21 01:17 09/30/21 01:17 - General physical appearance Positive: well developed, no distress - Eyes Positive: PERRL, normal occular movement - Neck Positive: no masses, no bruits, trachea midline - Respiratory Positive: normal expansion - Cardiovascular Rhythm: regular - Extremities Extremities: no ischemia, No edema - Abdomen Abdomen: Present: soft. Absent: tender, distended, masses, rebound, guarding, rigid, surgical scars Hernia: none - Genitourinary Male Genitourinary: normal - Rectum Rectum: normal spincter tone, no hemorrhoids, no tenderness, no masses, no bleeding - Neurologic Neurologic: alert and oriented to time, place and person, motor strength and sensation are grossly intact, CN II-XII intact Results - Labs 09/30/21 00:54 09/30/21 05:58 Abnormal lab results 09/30/21 09/30/21 09/30/21 Range/Units 00:54 00:54 00:54 WBC 16.9 H (4.5-11.0) K/mm3 RBC 5.14 H (3.65-5.03) M/mm3 Hct 46.0 H (30.3-42.9) % MCH 26 L (28-32) pg MCHC 29 L (30-34) % Plt Count 583 H (140-440) K/mm3 Lymph % (Auto) 7.0 L (13.4-35.0) % [place] # (Auto) 1.1 H (0.0-0.8) K/mm3 Seg Neutrophils % 85.3 H (40.0-70.0) % Seg Neutrophils # 14.4 H (1.8-7.7) K/mm3 PT (12.2-14.9) Sec. VBG pH (7.320-7.420) Sodium (137-145) mmol/L Chloride 92.6 L (98-107) mmol/L Carbon Dioxide 17 L (22-30) mmol/L BUN 33 H (7-17) mg/dL Creatinine 1.7 H (0.6-1.2) mg/dL Glucose 1245 H* (65-100) mg/dL POC Glucose (70-105) mg/dL Lactic Acid 4.80 H* (0.7-2.0) mmol/L Phosphorus (2.5-4.5) mg/dL Magnesium (1.7-2.3) mg/dL Albumin 3.3 L (3.9-5) g/dL Salicylates (2.8-20.0) mg/dL Acetaminophen (10.0-30.0) ug/mL 09/30/21 09/30/21 09/30/21 Range/Units 00:54 00:54 00:54 WBC (4.5-11.0) K/mm3 RBC (3.65-5.03) M/mm3 Hct (30.3-42.9) % MCH (28-32) pg MCHC (30-34) % Plt Count (140-440) K/mm3 Lymph % (Auto) (13.4-35.0) % [place] # (Auto) (0.0-0.8) K/mm3 Seg Neutrophils % (40.0-70.0) % Seg Neutrophils # (1.8-7.7) K/mm3 PT 15.7 H (12.2-14.9) Sec. VBG pH (7.320-7.420) Sodium (137-145) mmol/L Chloride (98-107) mmol/L Carbon Dioxide (22-30) mmol/L BUN (7-17) mg/dL Creatinine (0.6-1.2) mg/dL Glucose (65-100) mg/dL POC Glucose (70-105) mg/dL Lactic Acid (0.7-2.0) mmol/L Phosphorus (2.5-4.5) mg/dL Magnesium (1.7-2.3) mg/dL Albumin (3.9-5) g/dL Salicylates < 0.3 L (2.8-20.0) mg/dL Acetaminophen 5.0 L (10.0-30.0) ug/mL 09/30/21 09/30/21 09/30/21 Range/Units 00:54 02:15 03:04 WBC (4.5-11.0) K/mm3 RBC (3.65-5.03) M/mm3 Hct (30.3-42.9) % MCH (28-32) pg MCHC (30-34) % Plt Count (140-440) K/mm3 Lymph % (Auto) (13.4-35.0) % [place] # (Auto) (0.0-0.8) K/mm3 Seg Neutrophils % (40.0-70.0) % Seg Neutrophils # (1.8-7.7) K/mm3 PT (12.2-14.9) Sec. VBG pH 7.246 L (7.320-7.420) Sodium (137-145) mmol/L Chloride (98-107) mmol/L Carbon Dioxide (22-30) mmol/L BUN (7-17) mg/dL Creatinine (0.6-1.2) mg/dL Glucose (65-100) mg/dL POC Glucose (70-105) mg/dL Lactic Acid 4.10 H* (0.7-2.0) mmol/L Phosphorus 6.00 H (2.5-4.5) mg/dL Magnesium 3.00 H (1.7-2.3) mg/dL Albumin (3.9-5) g/dL Salicylates (2.8-20.0) mg/dL Acetaminophen (10.0-30.0) ug/mL 09/30/21 09/30/21 09/30/21 Range/Units 05:20 05:27 05:27 WBC (4.5-11.0) K/mm3 RBC (3.65-5.03) M/mm3 Hct (30.3-42.9) % MCH (28-32) pg MCHC (30-34) % Plt Count (140-440) K/mm3 Lymph % (Auto) (13.4-35.0) % [place] # (Auto) (0.0-0.8) K/mm3 Seg Neutrophils % (40.0-70.0) % Seg Neutrophils # (1.8-7.7) K/mm3 PT (12.2-14.9) Sec. VBG pH (7.320-7.420) Sodium 151 H (137-145) mmol/L Chloride (98-107) mmol/L Carbon Dioxide 16 L (22-30) mmol/L BUN 36 H (7-17) mg/dL Creatinine 1.8 H (0.6-1.2) mg/dL Glucose 1143 H* (65-100) mg/dL POC Glucose (70-105) mg/dL Lactic Acid 3.30 H* (0.7-2.0) mmol/L Phosphorus 5.90 H (2.5-4.5) mg/dL Magnesium 3.30 H (1.7-2.3) mg/dL Albumin (3.9-5) g/dL Salicylates (2.8-20.0) mg/dL Acetaminophen (10.0-30.0) ug/mL 09/30/21 Range/Units 05:38 WBC (4.5-11.0) K/mm3 RBC (3.65-5.03) M/mm3 Hct (30.3-42.9) % MCH (28-32) pg MCHC (30-34) % Plt Count (140-440) K/mm3 Lymph % (Auto) (13.4-35.0) % [place] # (Auto) (0.0-0.8) K/mm3 Seg Neutrophils % (40.0-70.0) % Seg Neutrophils # (1.8-7.7) K/mm3 PT (12.2-14.9) Sec. VBG pH (7.320-7.420) Sodium (137-145) mmol/L Chloride (98-107) mmol/L Carbon Dioxide (22-30) mmol/L BUN (7-17) mg/dL Creatinine (0.6-1.2) mg/dL Glucose (65-100) mg/dL POC Glucose > 600 H (70-105) mg/dL Lactic Acid (0.7-2.0) mmol/L Phosphorus (2.5-4.5) mg/dL Magnesium (1.7-2.3) mg/dL Albumin (3.9-5) g/dL Salicylates (2.8-20.0) mg/dL Acetaminophen (10.0-30.0) ug/mL Diabetes panel 09/30/21 09/30/21 09/30/21 Range/Units 00:54 05:27 05:58 Sodium 144 151 H TNR (137-145) mmol/L Potassium 3.8 4.0 TNR (3.6-5.0) mmol/L Chloride 92.6 L 100.2 TNR (98-107) mmol/L Carbon Dioxide 17 L 16 L TNR (22-30) mmol/L BUN 33 H 36 H TNR (7-17) mg/dL Creatinine 1.7 H 1.8 H TNR (0.6-1.2) mg/dL Glucose 1245 H* 1143 H* TNR (65-100) mg/dL Calcium 9.5 10.0 TNR (8.4-10.2) mg/dL AST 17 (5-40) units/L ALT 27 (7-56) units/L Alkaline Phosphatase 123 (35-129) units/L Total Protein 8.0 (6.3-8.2) g/dL Albumin 3.3 L (3.9-5) g/dL Calcium panel 09/30/21 09/30/21 09/30/21 Range/Units 00:54 03:04 05:20 Calcium 9.5 (8.4-10.2) mg/dL Phosphorus 6.00 H 5.90 H (2.5-4.5) mg/dL Albumin 3.3 L (3.9-5) g/dL 09/30/21 09/30/21 Range/Units 05:27 05:58 Calcium 10.0 TNR (8.4-10.2) mg/dL Phosphorus (2.5-4.5) mg/dL Albumin (3.9-5) g/dL Pituitary panel 09/30/21 09/30/21 09/30/21 Range/Units 00:54 05:27 05:58 Sodium 144 151 H TNR (137-145) mmol/L Potassium 3.8 4.0 TNR (3.6-5.0) mmol/L Chloride 92.6 L 100.2 TNR (98-107) mmol/L Carbon Dioxide 17 L 16 L TNR (22-30) mmol/L BUN 33 H 36 H TNR (7-17) mg/dL Creatinine 1.7 H 1.8 H TNR (0.6-1.2) mg/dL Glucose 1245 H* 1143 H* TNR (65-100) mg/dL Calcium 9.5 10.0 TNR (8.4-10.2) mg/dL Adrenal panel 09/30/21 09/30/21 09/30/21 Range/Units 00:54 05:27 05:58 Sodium 144 151 H TNR (137-145) mmol/L Potassium 3.8 4.0 TNR (3.6-5.0) mmol/L Chloride 92.6 L 100.2 TNR (98-107) mmol/L Carbon Dioxide 17 L 16 L TNR (22-30) mmol/L BUN 33 H 36 H TNR (7-17) mg/dL Creatinine 1.7 H 1.8 H TNR (0.6-1.2) mg/dL Glucose 1245 H* 1143 H* TNR (65-100) mg/dL Calcium 9.5 10.0 TNR (8.4-10.2) mg/dL Total Bilirubin 0.60 (0.1-1.2) mg/dL AST 17 (5-40) units/L ALT 27 (7-56) units/L Alkaline Phosphatase 123 (35-129) units/L Total Protein 8.0 (6.3-8.2) g/dL Albumin 3.3 L (3.9-5) g/dL Assessment and Plan CT abdo and pelvis reviewed No obvious abscess in the perirectal area. On exam no induration in the perianal area. 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 Will cont to follow with you. When medically resuscitated a diabetic regular diet would be ok.
[2021-09-30 09:50] LABS: Calcium 9.6 mg/dL (8.4-10.2)
[2021-09-30] MEDS: carvediloL 12.5 MG TAB PO SCH ×2 (10:00→22:05)
--- NOTE | 2021-09-30 14:23 | Consultation ---
History of Present Illness - Reason for Consult Consult date: 09/30/21 DKA Past History Past Medical History: diabetes, hypertension Medications and Allergies Allergies Allergy/AdvReac Type Severity Reaction Status Date / Time No Known Allergies Allergy Unverified 11/09/16 18:31 Home Medications Medication Instructions Recorded Confirmed Last Taken Type Cyclobenzaprine [Flexeril] 10 mg PO TID PRN #20 tablet 11/10/16 Unknown Rx Ibuprofen [Motrin 600 MG tab] 600 mg PO Q8H PRN #30 tablet 11/10/16 Unknown Rx carvediloL [Coreg] 12.5 mg PO BID #60 tablet 11/10/16 Unknown Rx Active Meds: Active Medications Acetaminophen (Acetaminophen 325 Mg Tab) 650 mg PO Q4H PRN PRN Reason: Pain MILD(1-3)/Fever >100.5/HOWELL Albuterol (Albuterol 2.5 Mg/3 Ml Nebu) 2.5 mg IH Q4HRT PRN PRN Reason: Shortness Of Breath Albuterol/Ipratropium (Ipratropium/Albuterol Sulfate 3 Ml Ampul.Neb) 1 ampul IH Q6HRT ABRAN Carvedilol (Carvedilol 12.5 Mg Tab) 12.5 mg PO BID ABRAN Dextrose (Dextrose 50% In Water (25gm) 50 Ml Syringe) 0 ml IV Q30MIN PRN; Protocol PRN Reason: Hypoglycemia Famotidine (Famotidine 20 Mg/2 Ml Inj) 20 mg IV QAM ABRAN Heparin Sodium (Porcine) (Heparin 5,000 Unit/1 Ml Vial) 5,000 unit SUB-Q Q8HR ABRAN Hydromorphone HCl (Hydromorphone 1 Mg/1 Ml Inj) 0.5 mg IV Q3H PRN PRN Reason: Pain , Severe (7-10) Insulin Human Regular 100 (units/ Sodium Chloride) 100 mls @ 1 mls/hr IV TITR ABRAN; Protocol Last Titration: 09/30/21 13:15 Dose: 7 units/hr, 7 mls/hr Sodium Chloride (Nacl 0.45% 1000 Ml) 1,000 mls @ 150 mls/hr IV DIRECT ABRAN Potassium Chloride/Dextrose/Sod Cl (D5w/0.45% Nacl/Kcl 20 Meq) 20 meq in 1,000 mls @ 125 mls/hr IV DIRECT ABRAN Fluconazole (Diflucan/Ns 100 Mg/50 Ml) 100 mg in 50 mls @ 50 mls/hr IV Q24HR ABRAN Stop: 10/04/21 10:59 Vancomycin HCl 1,500 mg/ (Sodium Chloride) 530 mls @ 333.333 mls/hr IV Q24HR ABRAN Cefepime HCl (Cefepime/Ns 2 Gm/100 Ml) 2 gm in 100 mls @ 200 mls/hr IV Q12H A[facility]AN; Protocol Labetalol HCl (Labetalol 20 Mg/4 Ml Inj) 10 mg IV Q4HR PRN PRN Reason: SBP > 160, hold if HR <70 Morphine Sulfate (Morphine 2 Mg/1 Ml Inj) 2 mg IV Q4H PRN PRN Reason: Pain, Moderate (4-6) Last Admin: 09/30/21 13:05 Dose: 2 mg Ondansetron HCl (Ondansetron 4 Mg/2 Ml Inj) 4 mg IV Q8H PRN PRN Reason: Nausea And Vomiting Sodium Chloride (Sodium Chloride 0.9% 10 Ml Flush Syringe) 10 ml IV BID ABRAN Sodium Chloride (Sodium Chloride 0.9% 10 Ml Flush Syringe) 10 ml IV PRN PRN PRN Reason: LINE FLUSH Exam - Constitutional Vitals: Temp Pulse Resp BP Pulse Ox 97.8 F 119 H 26 H 160/102 94 09/30/21 11:28 09/30/21 07:45 09/30/21 07:45 09/30/21 07:45 09/30/21 07:45 Results - Labs CBC & Chem 7: 09/30/21 00:54 09/30/21 09:05 Labs: Abnormal lab results 09/30/21 09/30/21 09/30/21 Range/Units 00:54 00:54 00:54 WBC 16.9 H (4.5-11.0) K/mm3 RBC 5.14 H (3.65-5.03) M/mm3 Hct 46.0 H (30.3-42.9) % MCH 26 L (28-32) pg MCHC 29 L (30-34) % Plt Count 583 H (140-440) K/mm3 Lymph % (Auto) 7.0 L (13.4-35.0) % [place] # (Auto) 1.1 H (0.0-0.8) K/mm3 Seg Neutrophils % 85.3 H (40.0-70.0) % Seg Neutrophils # 14.4 H (1.8-7.7) K/mm3 PT (12.2-14.9) Sec. VBG pH (7.320-7.420) Sodium (137-145) mmol/L Chloride 92.6 L (98-107) mmol/L Carbon Dioxide 17 L (22-30) mmol/L BUN 33 H (7-17) mg/dL Creatinine 1.7 H (0.6-1.2) mg/dL Glucose 1245 H* (65-100) mg/dL POC Glucose (70-105) mg/dL Lactic Acid 4.80 H* (0.7-2.0) mmol/L Phosphorus (2.5-4.5) mg/dL Magnesium (1.7-2.3) mg/dL Albumin 3.3 L (3.9-5) g/dL Salicylates (2.8-20.0) mg/dL Acetaminophen (10.0-30.0) ug/mL 09/30/21 09/30/21 09/30/21 Range/Units 00:54 00:54 00:54 WBC (4.5-11.0) K/mm3 RBC (3.65-5.03) M/mm3 Hct (30.3-42.9) % MCH (28-32) pg MCHC (30-34) % Plt Count (140-440) K/mm3 Lymph % (Auto) (13.4-35.0) % [place] # (Auto) (0.0-0.8) K/mm3 Seg Neutrophils % (40.0-70.0) % Seg Neutrophils # (1.8-7.7) K/mm3 PT 15.7 H (12.2-14.9) Sec. VBG pH (7.320-7.420) Sodium (137-145) mmol/L Chloride (98-107) mmol/L Carbon Dioxide (22-30) mmol/L BUN (7-17) mg/dL Creatinine (0.6-1.2) mg/dL Glucose (65-100) mg/dL POC Glucose (70-105) mg/dL Lactic Acid (0.7-2.0) mmol/L Phosphorus (2.5-4.5) mg/dL Magnesium (1.7-2.3) mg/dL Albumin (3.9-5) g/dL Salicylates < 0.3 L (2.8-20.0) mg/dL Acetaminophen 5.0 L (10.0-30.0) ug/mL 09/30/21 09/30/21 09/30/21 Range/Units 00:54 02:15 03:04 WBC (4.5-11.0) K/mm3 RBC (3.65-5.03) M/mm3 Hct (30.3-42.9) % MCH (28-32) pg MCHC (30-34) % Plt Count (140-440) K/mm3 Lymph % (Auto) (13.4-35.0) % [place] # (Auto) (0.0-0.8) K/mm3 Seg Neutrophils % (40.0-70.0) % Seg Neutrophils # (1.8-7.7) K/mm3 PT (12.2-14.9) Sec. VBG pH 7.246 L (7.320-7.420) Sodium (137-145) mmol/L Chloride (98-107) mmol/L Carbon Dioxide (22-30) mmol/L BUN (7-17) mg/dL Creatinine (0.6-1.2) mg/dL Glucose (65-100) mg/dL POC Glucose (70-105) mg/dL Lactic Acid 4.10 H* (0.7-2.0) mmol/L Phosphorus 6.00 H (2.5-4.5) mg/dL Magnesium 3.00 H (1.7-2.3) mg/dL Albumin (3.9-5) g/dL Salicylates (2.8-20.0) mg/dL Acetaminophen (10.0-30.0) ug/mL 09/30/21 09/30/21 09/30/21 Range/Units 05:20 05:27 05:27 WBC (4.5-11.0) K/mm3 RBC (3.65-5.03) M/mm3 Hct (30.3-42.9) % MCH (28-32) pg MCHC (30-34) % Plt Count (140-440) K/mm3 Lymph % (Auto) (13.4-35.0) % [place] # (Auto) (0.0-0.8) K/mm3 Seg Neutrophils % (40.0-70.0) % Seg Neutrophils # (1.8-7.7) K/mm3 PT (12.2-14.9) Sec. VBG pH (7.320-7.420) Sodium 151 H (137-145) mmol/L Chloride (98-107) mmol/L Carbon Dioxide 16 L (22-30) mmol/L BUN 36 H (7-17) mg/dL Creatinine 1.8 H (0.6-1.2) mg/dL Glucose 1143 H* (65-100) mg/dL POC Glucose (70-105) mg/dL Lactic Acid 3.30 H* (0.7-2.0) mmol/L Phosphorus 5.90 H (2.5-4.5) mg/dL Magnesium 3.30 H (1.7-2.3) mg/dL Albumin (3.9-5) g/dL Salicylates (2.8-20.0) mg/dL Acetaminophen (10.0-30.0) ug/mL 09/30/21 09/30/21 09/30/21 Range/Units 05:38 09:05 09:05 WBC (4.5-11.0) K/mm3 RBC (3.65-5.03) M/mm3 Hct (30.3-42.9) % MCH (28-32) pg MCHC (30-34) % Plt Count (140-440) K/mm3 Lymph % (Auto) (13.4-35.0) % [place] # (Auto) (0.0-0.8) K/mm3 Seg Neutrophils % (40.0-70.0) % Seg Neutrophils # (1.8-7.7) K/mm3 PT (12.2-14.9) Sec. VBG pH (7.320-7.420) Sodium 157 H (137-145) mmol/L Chloride 113.1 H (98-107) mmol/L Carbon Dioxide 18 L (22-30) mmol/L BUN 32 H (7-17) mg/dL Creatinine 1.6 H (0.6-1.2) mg/dL Glucose 654 H* (65-100) mg/dL POC Glucose > 600 H (70-105) mg/dL Lactic Acid 5.30 H* (0.7-2.0) mmol/L Phosphorus (2.5-4.5) mg/dL Magnesium (1.7-2.3) mg/dL Albumin (3.9-5) g/dL Salicylates (2.8-20.0) mg/dL Acetaminophen (10.0-30.0) ug/mL 09/30/21 09/30/21 09/30/21 Range/Units 09:44 11:22 13:12 WBC (4.5-11.0) K/mm3 RBC (3.65-5.03) M/mm3 Hct (30.3-42.9) % MCH (28-32) pg MCHC (30-34) % Plt Count (140-440) K/mm3 Lymph % (Auto) (13.4-35.0) % [place] # (Auto) (0.0-0.8) K/mm3 Seg Neutrophils % (40.0-70.0) % Seg Neutrophils # (1.8-7.7) K/mm3 PT (12.2-14.9) Sec. VBG pH (7.320-7.420) Sodium (137-145) mmol/L Chloride (98-107) mmol/L Carbon Dioxide (22-30) mmol/L BUN (7-17) mg/dL Creatinine (0.6-1.2) mg/dL Glucose (65-100) mg/dL POC Glucose > 600 H 490 H 372 H (70-105) mg/dL Lactic Acid (0.7-2.0) mmol/L Phosphorus (2.5-4.5) mg/dL Magnesium (1.7-2.3) mg/dL Albumin (3.9-5) g/dL Salicylates (2.8-20.0) mg/dL Acetaminophen (10.0-30.0) ug/mL Assessment and Plan 51 y/o with DKA
[2021-09-30 16:07] LABS: Calcium 8.6 mg/dL (8.4-10.2)
[2021-09-30] MEDS ORDERED: DEXTROSE 5% IN WATER 1,000 ML IV SCH (17:00)
[2021-09-30] MEDS: HEPARIN 5,000 UNIT/1 ML VIAL SUB-Q SCH ×3 (18:01→22:04)
[2021-09-30] MEDS: FAMOTIDINE 20 MG/2 ML INJ IV SCH (18:02)
[2021-09-30] MEDS: CEFEPIME/NS 2 GM/100 ML 2 GM/100 ML BAG IV SCH ×2 (19:33→22:04)
[2021-09-30] MEDS: FLUCONAZOLE/NS 100 MG/50 ML 100 MG/50 ML BAG IV SCH (19:34)
[2021-09-30] MEDS: IPRATROPIUM/ALBUTEROL SULFATE 3 ML AMPUL.NEB IH SCH (19:34)
[2021-09-30 20:44] LABS: Calcium 9.3 mg/dL (8.4-10.2)
[2021-10-01 06:16] LABS: Basophils % (Auto) 0.2 % (0.0-1.8); Eosinophils % (Auto) 0.1 % (0.0-4.3); Hematocrit 38.8 % (30.3-42.9); Lymphocytes # (Auto) 1.3 K/mm3 (1.2-5.4); Lymphocytes % (Auto) 10.2 % (13.4-35.0); Mean Corpuscular HGB Conc 31 % (30-34); Mean Corpuscular Volume 84 fl (79-97); Monocytes # (Auto) 0.6 K/mm3 (0.0-0.8); Monocytes % (Auto) 4.8 % (0.0-7.3); Platelet Count 236 K/mm3 (140-440); Red Blood Count 4.64 M/mm3 (3.65-5.03); Red Cell Distribution Width 14.5 % (13.2-15.2)
[2021-10-01] MEDS: INSULIN REGULAR, HUMAN 100 UNITS in SODIUM CHLORIDE 0.9% 99 ML IV SCH (06:35)
[2021-10-01 06:38] LABS: Calcium 8.4 mg/dL (8.4-10.2)
[2021-10-01] MEDS: HEPARIN 5,000 UNIT/1 ML VIAL SUB-Q SCH ×3 (06:38→22:42)
--- NOTE | 2021-10-01 08:33 | Progress Note ---
Assessment and Plan Assessment and plan: History of present illness: 51-year-old female with history of insulin dependent diabetes, hypertension was brought to the emergency room because of altered mental status. Patient initially unable to answer questions per EMS. Patient was able to answer my questions. She denies any pain. She is able to tell her name. She is able to give location. Accu-Chek read "high" per EMS report.Family member called emergency department. Family member reported abscess in the vaginal rectal region. Admitted for DKA, Cellulitis to ICU. Hospital Course: 09/30/2021: Extremely dehydrated. Fluid resuscitation with D5 + 40 KCL due to hypernatremia and hyperkalemia. BG improving. Cellulitis of buttock eval by Gen surgery, no intervention at this time. Will medically manage with abx. 10/01/2021: GAP closed. Can start subcutaneous insulin, diabetic diet. Continue IVF resuscitation. Trend BMP q4hr for correction of hypernatremia and hypokalemia. Continue IV antibiotics. Anticipate d/c in next 24-48hrs. Nutrition consultation placed for diabetic education. Can be downgraded to medical floor. Assessment and Plan: (1) Diabetic ketoacidosis Current Visit: Yes Status: Acute Plan to address problem: Likely precipitatedby buttock cellulitis/COVID 19 viral illness. No control of diabetics with medications prior to admission diabetic diet start subcutaneous insulin Hemoglobin A1c: (2) Hypernatremia Current Visit: Yes Status: Acute Plan to address problem: Na: 164 Severe dehydration, likely still needs more volume Continue hypotonic ivf with d5w Trend on serial bmp (3) Hypokalemia Current Visit: Yes Status: Acute Plan to address problem: K: 2.9 Replaced with D5w with 40 KCL. Trend on serial bmp (4) Positive for COVID 19 Current Visit: Yes Status: Acute Plan to address problem: Unvaccinated Currently on room air/afebrile. supportive therapy with fluids, no indications for steroids/experimental therapies (5) Acute metabolic encephalopathy (resolved_ Current Visit: Yes Status: Acute Plan to address problem: Acute metabolic encephalopathy secondary to DKA and sepsis Management of DKA and sepsis as outlined. (6) Severe Sepsis POA Current Visit: Yes Status: Acute Plan to address problem: IV fluid half-normal saline at the rate of 150 cc/h. Cefepime 1 g IV every 8 hours. Vancomycin 1 g IV every 12 hours. blood culture wound culture. consult gen surgery - recommends medical management. doubts abscess follow wbc/lactic acid (7) Cellulitis and abscess of buttock Current Visit: Yes Status: Acute Plan to address problem: IV fluid half-normal saline at the rate of 150 cc/h. Cefepime 1 g IV every 8 hours. Vancomycin 1 g IV every 12 hours. blood culture wound culture. consult gen surgery - recommends medical management. doubts abscess (8) Hypertension Current Visit: Yes Status: Acute Plan to address problem: Labetalol 10 mg IV every 4 hours as needed. Resume home medication once pt can tolerate oral intake (9) Candidiasis of genitalia Current Visit: Yes Status: Acute Plan to address problem: Diflucan 200 mg IV daily. We also put nystatin powder (10) DVT prophylaxis Current Visit: Yes Status: Acute Plan to address problem: Heparin 5000 units subcu every 8 hours for DVT prophylaxis. Pepcid 20 mg IV every 12 hours for GI prophylaxis. Patient is a full code History Interval history: Patient is more oriented today. She is able to communicate her wishes stating frequently that she is thirsty. 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 Discussed her medical history and patient states that she has been told she's "pre-diabetic" but has not been taking any medications for her diabetes. Patient had been feeling ill 2 days prior to admission and attempted to hydrate with gatorades. Hospitalist Physical - Physical exam Narrative exam: - General General appearance: more alert - Head Head exam: Present: atraumatic, normocephalic - Eye Eye exam: Present: normal appearance - ENT ENT exam: Present: mucous membranes very dry - Neck Neck exam: Present: normal inspection, full ROM - Respiratory Respiratory exam: Present: normal lung sounds bilaterally. Absent: respiratory distress, wheezes, rales, rhonchi - Cardiovascular Cardiovascular Exam: Present: regular rate, normal rhythm, normal heart sounds. Absent: systolic murmur, diastolic murmur, rubs, gallop - GI/Abdominal GI/Abdominal exam: Present: soft, normal bowel sounds. Absent: distended, tenderness, guarding, rebound - External exam: Present: other (Diffuse erythematous excoriation irritated skin involving the perineum suprapubic perirectal regions with skin ulcer at the right gluteus with purulent drainage ) - Extremities Exam Extremities exam: Present: normal inspection - Back Exam Back exam: Present: normal inspection - Neurological Exam Neurological exam: Present: alert, oriented X4 - Psychiatric Psychiatric exam: Present: normal affect, normal mood - Skin Skin exam: Present: rash - Constitutional Vitals: Temp Pulse Resp BP Pulse Ox 98.7 F 105 H 22 100/79 97 09/30/21 19:30 10/01/21 06:45 10/01/21 06:45 10/01/21 06:45 10/01/21 06:45 General appearance: Present: severe distress Results - Labs CBC & Chem 7: 10/01/21 05:45 10/01/21 05:45 Labs: Laboratory Last Values WBC 13.2 K/mm3 (4.5-11.0) H 10/01/21 05:45 RBC 4.64 M/mm3 (3.65-5.03) 10/01/21 05:45 Hgb 12.0 gm/dl (10.1-14.3) 10/01/21 05:45 Hct 38.8 % (30.3-42.9) D 10/01/21 05:45 MCV 84 fl (79-97) 10/01/21 05:45 MCH 26 pg (28-32) L 10/01/21 05:45 MCHC 31 % (30-34) 10/01/21 05:45 RDW 14.5 % (13.2-15.2) 10/01/21 05:45 Plt Count 236 K/mm3 (140-440) 10/01/21 05:45 Lymph % (Auto) 10.2 % (13.4-35.0) L 10/01/21 05:45 [place] % (Auto) 4.8 % (0.0-7.3) 10/01/21 05:45 Eos % (Auto) 0.1 % (0.0-4.3) 10/01/21 05:45 Baso % (Auto) 0.2 % (0.0-1.8) 10/01/21 05:45 Lymph # (Auto) 1.3 K/mm3 (1.2-5.4) 10/01/21 05:45 [place] # (Auto) 0.6 K/mm3 (0.0-0.8) 10/01/21 05:45 Eos # (Auto) 0.0 K/mm3 (0.0-0.4) 10/01/21 05:45 Baso # (Auto) 0.0 K/mm3 (0.0-0.1) 10/01/21 05:45 Seg Neutrophils % 84.7 % (40.0-70.0) H 10/01/21 05:45 Seg Neutrophils # 11.2 K/mm3 (1.8-7.7) H 10/01/21 05:45 PT 15.7 Sec. (12.2-14.9) H 09/30/21 00:54 INR 1.13 (0.87-1.13) 09/30/21 00:54 VBG pH 7.246 (7.320-7.420) L 09/30/21 00:54 Sodium 164 mmol/L (137-145) H* 10/01/21 05:45 Potassium 2.9 mmol/L (3.6-5.0) L* D 10/01/21 05:45 Chloride 125.0 mmol/L (98-107) H 10/01/21 05:45 Carbon Dioxide 24 mmol/L (22-30) 10/01/21 05:45 Anion Gap 16 mmol/L 10/01/21 05:45 BUN 30 mg/dL (7-17) H 10/01/21 05:45 Creatinine 1.3 mg/dL (0.6-1.2) H 10/01/21 05:45 Estimated GFR 52 ml/min 10/01/21 05:45 BUN/Creatinine Ratio 23 % 10/01/21 05:45 Glucose 253 mg/dL (65-100) H 10/01/21 05:45 POC Glucose 159 mg/dL (70-105) H 10/01/21 08:06 Lactic Acid 5.30 mmol/L (0.7-2.0) H* 09/30/21 09:05 Calcium 8.4 mg/dL (8.4-10.2) 10/01/21 05:45 Phosphorus 5.90 mg/dL (2.5-4.5) H 09/30/21 05:20 Magnesium 3.30 mg/dL (1.7-2.3) H 09/30/21 05:20 Total Bilirubin 0.60 mg/dL (0.1-1.2) 09/30/21 00:54 AST 17 units/L (5-40) 09/30/21 00:54 ALT 27 units/L (7-56) 09/30/21 00:54 Alkaline Phosphatase 123 units/L (35-129) 09/30/21 00:54 Total Protein 8.0 g/dL (6.3-8.2) 09/30/21 00:54 Albumin 3.3 g/dL (3.9-5) L 09/30/21 00:54 Albumin/Globulin Ratio 0.7 % 09/30/21 00:54 Salicylates < 0.3 mg/dL (2.8-20.0) L 09/30/21 00:54 Acetaminophen 5.0 ug/mL (10.0-30.0) L 09/30/21 00:54 Plasma/Serum Alcohol < 0.01 % (0-0.07) 09/30/21 00:54 Coronavirus (PCR) Positive (Negative) A 09/30/21 Unknown Microbiology: Microbiology 09/30/21 00:54 Peripheral/Venous Blood Culture - Preliminary NO GROWTH AFTER 24 HOURS 09/30/21 01:30 Peripheral/Venous Blood Culture - Preliminary NO GROWTH AFTER 24 HOURS Active Medications - Current Medications Current Medications: Generic Name Dose Route Start Last Admin Trade Name Freq PRN Reason Stop Dose Admin Acetaminophen 650 mg 09/30/21 03:23 Acetaminophen 325 Mg Tab PO Q4H PRN Pain MILD(1-3)/Fever >100.5/HOWELL Albuterol 2.5 mg 09/30/21 03:23 Albuterol 2.5 Mg/3 Ml Nebu IH Q4HRT PRN Shortness Of Breath Albuterol/Ipratropium 1 ampul 09/30/21 08:00 09/30/21 19:34 Ipratropium/Albuterol Sulfate 3 Ml Ampul.Neb IH Not Given Q6HRT ABRAN Carvedilol 12.5 mg 09/30/21 10:00 09/30/21 22:05 Carvedilol 12.5 Mg Tab PO Not Given BID ABRAN Dextrose 0 ml 09/30/21 03:23 Dextrose 50% In Water (25gm) 50 Ml Syringe IV Q30MIN PRN Hypoglycemia Protocol Famotidine 20 mg 09/30/21 10:00 09/30/21 18:02 Famotidine 20 Mg/2 Ml Inj IV 20 mg QAM ABRAN Administration Heparin Sodium (Porcine) 5,000 unit 09/30/21 06:00 10/01/21 06:38 Heparin 5,000 Unit/1 Ml Vial SUB-Q 5,000 unit Q8HR ABRAN Administration Hydromorphone HCl 0.5 mg 09/30/21 03:23 Hydromorphone 1 Mg/1 Ml Inj IV Q3H PRN Pain , Severe (7-10) Insulin Human Regular 100 100 mls @ 1 mls/hr 09/30/21 04:00 10/01/21 08:09 units/ Sodium Chloride IV 9.5 units/hr TITR ABRAN 9.5 mls/hr Titration Protocol 1 UNITS/HR Sodium Chloride 1,000 mls @ 150 mls/hr 09/30/21 04:00 Nacl 0.45% 1000 Ml IV DIRECT ABRAN Fluconazole 100 mg in 50 mls @ 50 mls/hr 09/30/21 10:00 09/30/21 19:34 Diflucan/Ns 100 Mg/50 Ml IV 10/04/21 10:59 Not Given Q24HR ABRAN Vancomycin HCl 1,500 mg/ 530 mls @ 333.333 mls/hr 10/01/21 10:00 Sodium Chloride IV Q24HR ABRAN Cefepime HCl 2 gm in 100 mls @ 200 mls/hr 09/30/21 08:00 09/30/21 22:04 Cefepime/Ns 2 Gm/100 Ml IV 200 mls/hr Q12H ABRAN Administration Protocol Potassium Chloride 40 meq/ 1,020 mls @ 125 mls/hr 10/01/21 09:00 Dextrose IV DIRECT ABRAN Labetalol HCl 10 mg 09/30/21 10:00 Labetalol 20 Mg/4 Ml Inj IV Q4HR PRN SBP > 160, hold if HR <70 Morphine Sulfate 2 mg 09/30/21 03:23 09/30/21 13:05 Morphine 2 Mg/1 Ml Inj IV 2 mg Q4H PRN Administration Pain, Moderate (4-6) Ondansetron HCl 4 mg 09/30/21 03:23 Ondansetron 4 Mg/2 Ml Inj IV Q8H PRN Nausea And Vomiting Sodium Chloride 10 ml 09/30/21 10:00 09/30/21 22:05 Sodium Chloride 0.9% 10 Ml Flush Syringe IV 10 ml BID ABRAN Administration Sodium Chloride 10 ml 09/30/21 03:23 Sodium Chloride 0.9% 10 Ml Flush Syringe IV PRN PRN LINE FLUSH Nutrition/Malnutrition Assess - Dietary Evaluation Nutrition/Malnutrition Findings: Nutrition Notes Start: 09/30/21 10:59 Freq: Status: Active Protocol: Document 09/30/21 10:59 CHARLIE (Rec: 09/30/21 11:02 CHARLIE [id number]) Nutrition Notes Need for Assessment generated from: MD Order,Education Initial or Follow up Brief Note Current Diet NPO (since 09/30 03:24). Height 5 ft 5 in Weight 99.79 kg [place] Body Weight (kg) 56.81 BMI 36.6 Weight change and time frame None reported at admission. Weight Status Obese Subjective/Other Information RD consult for Nutrition Education. Pt still on ED, not a candidate for Nutrition Education at the time, will assess feasibility on F/U. Percent of energy/protein needs met: Pt currently on NPO. Current % PO Other Nutrition Intervention Follow-Up By: 10/07/21 Additional Comments Nutrition education will be provided on F/U if feasible. When pertinent, continue monitoring food tolerance, %PO intake of meals, and BM.
[2021-10-01] MEDS: CEFEPIME/NS 2 GM/100 ML 2 GM/100 ML BAG IV SCH (08:43)
[2021-10-01] MEDS ORDERED: POTASSIUM CHLORIDE 40 MEQ in DEXTROSE 5% IN WATER 1,000 ML IV SCH (09:00)
[2021-10-01] MEDS ORDERED: VANCOMYCIN 1,500 MG in SODIUM CHLORIDE 0.9% 500 ML 500 ML IV SCH (10:00)
[2021-10-01] MEDS ORDERED: INSULIN GLARGINE 100 UNITS/ML SUB-Q NR (11:00)
[2021-10-01] MEDS ORDERED: DEXTROSE 50% IN WATER (25GM) 50 ML SYRINGE IV PRN (11:00)
[2021-10-01] MEDS: carvediloL 12.5 MG TAB PO SCH ×2 (12:54→22:42)
[2021-10-01] MEDS: FAMOTIDINE 20 MG/2 ML INJ IV SCH (12:54)
[2021-10-01] MEDS: FLUCONAZOLE/NS 100 MG/50 ML 100 MG/50 ML BAG IV SCH (12:54)
[2021-10-01] MEDS: IPRATROPIUM/ALBUTEROL SULFATE 3 ML AMPUL.NEB IH SCH ×2 (12:55→19:38)
[2021-10-01] MEDS: INSULIN LISPRO 100 UNIT/ML SUB-Q SCH ×6 (13:11→22:43)
--- NOTE | 2021-10-01 13:51 | Event Note ---
Date: 10/01/21 Anion Gap, ok with transition to long acting insulin and feed patient.
[2021-10-01] MEDS: AMPICILLIN/SULBACTA 1.5GM/50ML 1.5 GM/50 ML BAG IV SCH ×2 (15:10→20:10)
--- NOTE | 2021-10-01 18:33 | Vascular Lab Report ---
DUPLEX DOPPLER UPPER EXTREMITY VENOUS, LEFT INDICATION / CLINICAL INFORMATION: swelling, r/o dvt. TECHNIQUE: Duplex doppler imaging was performed through the veins of the left upper extremity using v enous compression and other maneuvers. COMPARISON: None available. FINDINGS: LEFT INTERNAL JUGULAR VEIN: Negative. LEFT SUBCLAVIAN VEIN: Negative. LEFT AXILLARY VEIN: Negative. LEFT BRACHIAL VEIN: Negative. LEFT FOREARM VEINS: Negative. LEFT BASILIC VEIN (SUPERFICIAL): Negative. ADDITIONAL FINDINGS: None. IMPRESSION: 1. No sonographic evidence for DVT. Scribed by: Lynn Montes RDMS, RVT Scribed: 10/01/2021 4:20 PM I have reviewed the images, agree with this report, and edited this report as needed. Signer Name: Quoc Márquez MD Signed: 10/01/2021 6:29 PM Workstation Name: [id number]
[2021-10-01 18:38] LABS: Calcium 8.6 mg/dL (8.4-10.2)
[2021-10-01] MEDS: INSULIN GLARGINE 100 UNITS/ML SUB-Q SCH ×2 (19:38→22:43)
[2021-10-01 23:09] LABS: Calcium 8.4 mg/dL (8.4-10.2)
[2021-10-02] MEDS: IPRATROPIUM/ALBUTEROL SULFATE 3 ML AMPUL.NEB IH SCH (01:34)
[2021-10-02] MEDS: AMPICILLIN/SULBACTA 1.5GM/50ML 1.5 GM/50 ML BAG IV SCH ×4 (01:54→21:40)
[2021-10-02 02:02] LABS: Calcium 7.8 mg/dL (8.4-10.2)
[2021-10-02] MEDS: HEPARIN 5,000 UNIT/1 ML VIAL SUB-Q SCH ×3 (06:32→23:05)
[2021-10-02 07:03] LABS: Calcium 8.4 mg/dL (8.4-10.2)
[2021-10-02] MEDS ORDERED: INSULIN REGULAR, HUMAN 100 UNITS/1 ML SUB-Q ONE (07:22)
[2021-10-02] MEDS: INSULIN LISPRO 100 UNIT/ML SUB-Q SCH ×8 (07:30→23:07)
[2021-10-02] MEDS ORDERED: INSULIN REGULAR, HUMAN 100 UNITS/1 ML IV ONE (07:35)
[2021-10-02] MEDS ORDERED: ALBUTEROL 8.5 GM MDI INHALATION IH PRN (07:58)
[2021-10-02] MEDS ORDERED: INSULIN GLARGINE 100 UNITS/ML SUB-Q ONE (08:30)
--- NOTE | 2021-10-02 09:34 | Progress Note ---
Assessment and Plan Assessment and plan: History of present illness: 51-year-old female with history of insulin dependent diabetes, hypertension was brought to the emergency room because of altered mental status. Patient initially unable to answer questions per EMS. Patient was able to answer my questions. She denies any pain. She is able to tell her name. She is able to give location. Accu-Chek read "high" per EMS report.Family member called emergency department. Family member reported abscess in the vaginal rectal region. Admitted for DKA, Cellulitis to ICU. Hospital Course: 09/30/2021: Extremely dehydrated. Fluid resuscitation with D5 + 40 KCL due to hypernatremia and hyperkalemia. BG improving. Cellulitis of buttock eval by Gen surgery, no intervention at this time. Will medically manage with abx. 10/01/2021: GAP closed. Can start subcutaneous insulin, diabetic diet. Continue IVF resuscitation. Trend BMP q4hr for correction of hypernatremia and hypokalemia. Continue IV antibiotics. Anticipate d/c in next 24-48hrs. Nutrition consultation placed for diabetic education. Can be downgraded to medical floor. 10/02/2021: GAP re-opened while on floor. WIll restart insulin gtt once able to transfer to icu. in the interim, initiated patient on lantus and regular insulin with some improvement in BG. patient made NPO. Currently on 1/2 NS for hypernatremia. Will switch to d5W hypotonic solution once on insulin gtt. both hypernatremia and hypokalemia improved. Assessment and Plan: (1) Diabetic ketoacidosis Current Visit: Yes Status: Acute Plan to address problem: Likely precipitatedby buttock cellulitis/COVID 19 viral illness. No control of diabetics with medications prior to admission diabetic diet start subcutaneous insulin Hemoglobin A1c: 16.7 (2) Hypernatremia Current Visit: Yes Status: Acute Plan to address problem: Na: 164 in ED Severe dehydration, likely still needs more volume Continue hypotonic ivf with d5w Trend on serial bmp (3) Hypokalemia Current Visit: Yes Status: Acute Plan to address problem: K: 2.9 in ED Replaced with D5w with 40 KCL. Trend on serial bmp (4) Positive for COVID 19 Current Visit: Yes Status: Acute Plan to address problem: Unvaccinated Currently on room air/afebrile. supportive therapy with fluids, no indications for steroids/experimental therapies (5) Acute metabolic encephalopathy (resolved_ Current Visit: Yes Status: Acute Plan to address problem: Acute metabolic encephalopathy secondary to DKA and sepsis Management of DKA and sepsis as outlined. (6) Severe Sepsis POA Current Visit: Yes Status: Acute Plan to address problem: IV fluid half-normal saline at the rate of 150 cc/h. Cefepime 1 g IV every 8 hours. Vancomycin 1 g IV every 12 hours. blood culture wound culture. consult gen surgery - recommends medical management. doubts abscess follow wbc/lactic acid (7) Cellulitis and abscess of buttock Current Visit: Yes Status: Acute Plan to address problem: IV fluid half-normal saline at the rate of 150 cc/h. Cefepime 1 g IV every 8 hours. Vancomycin 1 g IV every 12 hours. blood culture wound culture. consult gen surgery - recommends medical management. doubts abscess (8) Hypertension Current Visit: Yes Status: Acute Plan to address problem: Labetalol 10 mg IV every 4 hours as needed. Resume home medication once pt can tolerate oral intake (9) Candidiasis of genitalia Current Visit: Yes Status: Acute Plan to address problem: Diflucan 200 mg IV daily. We also put nystatin powder (10) DVT prophylaxis Current Visit: Yes Status: Acute Plan to address problem: Heparin 5000 units subcu every 8 hours for DVT prophylaxis. Pepcid 20 mg IV every 12 hours for GI prophylaxis. Patient is a full code History Interval history: GAP increased over night .Remains dry on encounter. Alert/NAD. Hospitalist Physical - Physical exam Narrative exam: - General General appearance: more alert - Head Head exam: Present: atraumatic, normocephalic - Eye Eye exam: Present: normal appearance - ENT ENT exam: Present: mucous membranes very dry - Neck Neck exam: Present: normal inspection, full ROM - Respiratory Respiratory exam: Present: normal lung sounds bilaterally. Absent: respiratory distress, wheezes, rales, rhonchi - Cardiovascular Cardiovascular Exam: Present: regular rate, normal rhythm, normal heart sounds. Absent: systolic murmur, diastolic murmur, rubs, gallop - GI/Abdominal GI/Abdominal exam: Present: soft, normal bowel sounds. Absent: distended, tenderness, guarding, rebound - External exam: Present: other (Diffuse erythematous excoriation irritated skin involving the perineum suprapubic perirectal regions with skin ulcer at the right gluteus with purulent drainage ) - Extremities Exam Extremities exam: Present: normal inspection - Back Exam Back exam: Present: normal inspection - Neurological Exam Neurological exam: Present: alert, oriented X4 - Psychiatric Psychiatric exam: Present: normal affect, normal mood - Skin Skin exam: Present: rash - Constitutional Vitals: Temp Pulse Resp BP Pulse Ox 98.0 F 78 20 127/79 93 10/02/21 04:59 10/02/21 05:31 10/02/21 04:59 10/02/21 04:59 10/02/21 05:19 General appearance: Present: severe distress Results - Labs CBC & Chem 7: 10/01/21 05:45 10/02/21 09:42 Labs: Laboratory Last Values WBC 13.2 K/mm3 (4.5-11.0) H 10/01/21 05:45 RBC 4.64 M/mm3 (3.65-5.03) 10/01/21 05:45 Hgb 12.0 gm/dl (10.1-14.3) 10/01/21 05:45 Hct 38.8 % (30.3-42.9) D 10/01/21 05:45 MCV 84 fl (79-97) 10/01/21 05:45 MCH 26 pg (28-32) L 10/01/21 05:45 MCHC 31 % (30-34) 10/01/21 05:45 RDW 14.5 % (13.2-15.2) 10/01/21 05:45 Plt Count 236 K/mm3 (140-440) 10/01/21 05:45 Lymph % (Auto) 10.2 % (13.4-35.0) L 10/01/21 05:45 [place] % (Auto) 4.8 % (0.0-7.3) 10/01/21 05:45 Eos % (Auto) 0.1 % (0.0-4.3) 10/01/21 05:45 Baso % (Auto) 0.2 % (0.0-1.8) 10/01/21 05:45 Lymph # (Auto) 1.3 K/mm3 (1.2-5.4) 10/01/21 05:45 [place] # (Auto) 0.6 K/mm3 (0.0-0.8) 10/01/21 05:45 Eos # (Auto) 0.0 K/mm3 (0.0-0.4) 10/01/21 05:45 Baso # (Auto) 0.0 K/mm3 (0.0-0.1) 10/01/21 05:45 Seg Neutrophils % 84.7 % (40.0-70.0) H 10/01/21 05:45 Seg Neutrophils # 11.2 K/mm3 (1.8-7.7) H 10/01/21 05:45 PT 15.7 Sec. (12.2-14.9) H 09/30/21 00:54 INR 1.13 (0.87-1.13) 09/30/21 00:54 VBG pH 7.246 (7.320-7.420) L 09/30/21 00:54 Sodium 153 mmol/L (137-145) H 10/02/21 05:11 Potassium 4.1 mmol/L (3.6-5.0) 10/02/21 05:11 Chloride 115.0 mmol/L (98-107) H 10/02/21 05:11 Carbon Dioxide 22 mmol/L (22-30) 10/02/21 05:11 Anion Gap 20 mmol/L 10/02/21 05:11 BUN 33 mg/dL (7-17) H 10/02/21 05:11 Creatinine 1.4 mg/dL (0.6-1.2) H 10/02/21 05:11 Estimated GFR 48 ml/min 10/02/21 05:11 BUN/Creatinine Ratio 24 % 10/02/21 05:11 Glucose 537 mg/dL (65-100) H* 10/02/21 05:11 POC Glucose 394 mg/dL (70-105) H 10/02/21 02:23 Hemoglobin A1c 16.7 % (4-6) H 10/01/21 Unknown Lactic Acid 5.30 mmol/L (0.7-2.0) H* 09/30/21 09:05 Calcium 8.4 mg/dL (8.4-10.2) 10/02/21 05:11 Phosphorus 5.90 mg/dL (2.5-4.5) H 09/30/21 05:20 Magnesium 3.30 mg/dL (1.7-2.3) H 09/30/21 05:20 Total Bilirubin 0.60 mg/dL (0.1-1.2) 09/30/21 00:54 AST 17 units/L (5-40) 09/30/21 00:54 ALT 27 units/L (7-56) 09/30/21 00:54 Alkaline Phosphatase 123 units/L (35-129) 09/30/21 00:54 Total Protein 8.0 g/dL (6.3-8.2) 09/30/21 00:54 Albumin 3.3 g/dL (3.9-5) L 09/30/21 00:54 Albumin/Globulin Ratio 0.7 % 09/30/21 00:54 Salicylates < 0.3 mg/dL (2.8-20.0) L 09/30/21 00:54 Acetaminophen 5.0 ug/mL (10.0-30.0) L 09/30/21 00:54 Plasma/Serum Alcohol < 0.01 % (0-0.07) 09/30/21 00:54 Coronavirus (PCR) Positive (Negative) A 09/30/21 Unknown Microbiology: Microbiology 09/30/21 00:54 Peripheral/Venous Blood Culture - Preliminary NO GROWTH AFTER 48 HOURS 09/30/21 01:30 Peripheral/Venous Blood Culture - Preliminary NO GROWTH AFTER 48 HOURS Chin/IV: Voiding Method External Female Catheter Active Medications - Current Medications Current Medications: Generic Name Dose Route Start Last Admin Trade Name Freq PRN Reason Stop Dose Admin Acetaminophen 650 mg 09/30/21 03:23 Acetaminophen 325 Mg Tab PO Q4H PRN Pain MILD(1-3)/Fever >100.5/HOWELL Albuterol 2 puff 10/02/21 07:58 Albuterol 8.5 Gm Mdi Inhalation IH Q6HRT PRN Shortness Of Breath Carvedilol 12.5 mg 09/30/21 10:00 10/01/21 22:42 Carvedilol 12.5 Mg Tab PO 12.5 mg BID ABRAN Administration Dextrose 50 ml 10/01/21 11:00 Dextrose 50% In Water (25gm) 50 Ml Syringe IV Q30MIN PRN Hypoglycemia Protocol Famotidine 20 mg 09/30/21 10:00 10/01/21 12:54 Famotidine 20 Mg/2 Ml Inj IV 20 mg QAM ABRAN Administration Heparin Sodium (Porcine) 5,000 unit 09/30/21 06:00 10/02/21 06:32 Heparin 5,000 Unit/1 Ml Vial SUB-Q 5,000 unit Q8HR ABRAN Administration Hydromorphone HCl 0.5 mg 09/30/21 03:23 Hydromorphone 1 Mg/1 Ml Inj IV Q3H PRN Pain , Severe (7-10) Fluconazole 100 mg in 50 mls @ 50 mls/hr 09/30/21 10:00 10/01/21 12:54 Diflucan/Ns 100 Mg/50 Ml IV 10/04/21 10:59 50 mls/hr Q24HR ABRAN Administration Ampicillin Sodium/Sulbactam Sodium 1.5 gm in 50 mls @ 100 mls/hr 10/01/21 14:00 10/02/21 01:54 Unasyn/Ns 1.5 Gm/50 Ml IV 100 mls/hr Q6H ABRAN Administration Protocol Potassium Chloride/Sodium Chloride 20 meq in 1,000 mls @ 150 mls/hr 10/02/21 10:00 Ns 0.45/Kcl 20meq IV 10/02/21 16:39 DIRECT ABRAN Insulin Glargine 30 units 10/01/21 18:22 10/01/21 22:43 Insulin Glargine 100 Units/Ml SUB-Q 30 units QHS ABRAN Administration Insulin Human Lispro 5 unit 10/01/21 11:30 10/01/21 22:42 Insulin Lispro 100 Unit/Ml SUB-Q 5 unit ACHS ABRAN Administration Insulin Human Lispro 0 unit 10/01/21 11:30 10/01/21 22:43 Insulin Lispro 100 Unit/Ml SUB-Q 8 unit ACHS [facility] Administration Protocol Labetalol HCl 10 mg 09/30/21 10:00 Labetalol 20 Mg/4 Ml Inj IV Q4HR PRN SBP > 160, hold if HR <70 Morphine Sulfate 2 mg 09/30/21 03:23 09/30/21 13:05 Morphine 2 Mg/1 Ml Inj IV 2 mg Q4H PRN Administration Pain, Moderate (4-6) Ondansetron HCl 4 mg 09/30/21 03:23 Ondansetron 4 Mg/2 Ml Inj IV Q8H PRN Nausea And Vomiting Sodium Chloride 10 ml 09/30/21 10:00 10/01/21 22:43 Sodium Chloride 0.9% 10 Ml Flush Syringe IV 10 ml BID ABRAN Administration Sodium Chloride 10 ml 09/30/21 03:23 Sodium Chloride 0.9% 10 Ml Flush Syringe IV PRN PRN LINE FLUSH Nutrition/Malnutrition Assess - Dietary Evaluation Nutrition/Malnutrition Findings: Nutrition Notes Start: 09/30/21 10:59 Freq: Status: Active Protocol: Document 09/30/21 10:59 CHARLIE (Rec: 09/30/21 11:02 CHARLIE [id number]) Nutrition Notes Need for Assessment generated from: MD Order,Education Initial or Follow up Brief Note Current Diet NPO (since 09/30 03:24). Height 5 ft 5 in Weight 99.79 kg [place] Body Weight (kg) 56.81 BMI 36.6 Weight change and time frame None reported at admission. Weight Status Obese Subjective/Other Information RD consult for Nutrition Education. Pt still on ED, not a candidate for Nutrition Education at the time, will assess feasibility on F/U. Percent of energy/protein needs met: Pt currently on NPO. Current % PO Other Nutrition Intervention Follow-Up By: 10/07/21 Additional Comments Nutrition education will be provided on F/U if feasible. When pertinent, continue monitoring food tolerance, %PO intake of meals, and BM.
[2021-10-02] MEDS: FAMOTIDINE 20 MG/2 ML INJ IV SCH (09:49)
[2021-10-02] MEDS: carvediloL 12.5 MG TAB PO SCH ×2 (09:59→23:06)
[2021-10-02] MEDS ORDERED: NACL 0.45%/KCL 20 MEQ 20 MEQ/1,000 ML BAG IV SCH (10:00)
[2021-10-02] MEDS: FLUCONAZOLE/NS 100 MG/50 ML 100 MG/50 ML BAG IV SCH (10:01)
[2021-10-02 10:47] LABS: Calcium 8.9 mg/dL (8.4-10.2)
[2021-10-02 22:59] VITALS: BP 138/84
[2021-10-02] MEDS: INSULIN GLARGINE 100 UNITS/ML SUB-Q SCH (23:06)
--- NOTE | 2021-10-03 00:18 | Procedure Note ---
Date of procedure: 10/03/21 - Intubation Time Out Performed: Yes Sedative: none Laryngoscope: none Size: 4 Assist Device Used: fiberoptic device ET Tube Size: 8 Tube Secured Depth (cm): 23 Tube Secured Location: lips Tube Placement Confirmation: visualized tube passing t, equal breath sounds bilat, no breath sounds over epi, confirmation by capnometr Patient Tolerated Procedure: well Intubation Complications: none Additional Comments: I responded to CODE BLUE on the floor. Dr Cueto at bedside directing resuscitation efforts. Patient was apneic and pulseless upon my arrival with bagging in progress. Patient was intubated with glide scope on first attempt
[2021-10-03 00:21] LABS: Calcium 8.2 mg/dL (8.4-10.2)
--- NOTE | 2021-10-03 00:41 | Event Note ---
Date: 10/03/21 CODE [facility] was called. Patient was found pulseless and breathless. CPR was given as per ACLS protocol. 3 AP 3 bicarb 1 calcium gluconate was given. Patient regained ROSC. Pulse 121 BP 85/53. Patient was a started on IV fluid and Levophed and transferred to the ICU. Critical care is consulted.
--- NOTE | 2021-10-03 01:02 | Death Summary ---
Summary - Providers Date of service: 10/03/21 Consults: 09/30/21 03:23 Consult to Dietitian/Nutrition [CONS] Routine Physician Instructions: Reason For Exam: DKA Reason for Consult: Nutrition Recommendations Reason for Consult: Diet education Consult to Physician [CONS] Routine Comment: Consulting Provider: STEPHANIA DAVIS Physician Instructions: Reason For Exam: Abscess cellulitis of the buttock 09/30/21 11:37 Speech Therapy Evaluation and Treat [CONS] Routine Reason For Exam: Altered Mental Status 10/03/21 00:37 Consult to Physician [CONS] Routine Comment: Consulting Provider: TIMOTHY AMATO Physician Instructions: Reason For Exam: DKA, cardiac arrest Attending: LUCÍA NAVARRO MD - summary Date of admission: 09/30/21 02:51 Disposition: Patient was coded 3 times. CPR was given as per ACLS protocol for epinephrine, 1 atropine ,4 bicarb was given. Initially patient regained ROSC. Then patient lost the pulse. CPR was given but patient failed to regain ROSC patient at 12:52 AM on 10/03/2021 due to cardiopulmonary arrest, COVID-19 infection, DKA, cellulitis of the buttock, sepsis. Family is notified. Prognosis was poor. - Final diagnosis (1) Diabetic ketoacidosis Note: Final diagnosis: (2) Acute metabolic encephalopathy Note: Final diagnosis: (3) Hypertension Note: Final diagnosis: (4) Candidiasis of genitalia Note: Final diagnosis: (5) Cellulitis and abscess of buttock Note: Final diagnosis: (6) Sepsis Note: Final diagnosis: (7) DVT prophylaxis Note: Final diagnosis:
[2021-10-03] MEDS ORDERED: ATROPINE 0.1% (1 MG/10 ML) CARDIAC SYRINGE ONE (06:28)
[2021-10-03] MEDS ORDERED: SODIUM BICARB 8.4% 50 MEQ/50 ML SYRINGE IV ONE (06:28)
[2021-10-03] MEDS ORDERED: EPINEPHrine 1 MG/10 ML SYRINGE ONE (06:28)
== END 2021-10-03 00:52 | DRG 871 ==
LOC: ED 00:20 → CC1 02:51 → 4A 10-01 12:50 → 3A 10-01 23:52
PROVIDERS: ADMIT Hospitalist; ATTEND Internal Medicine
PROC: 0BH17EZ Insertion of Endotracheal Airway into Trachea, Via Natural or Artificial Opening (ICD-10-PCS; principal; 2021-10-03)
PROC: 5A12012 Performance of Cardiac Output, Single, Manual (ICD-10-PCS; 2021-10-03)
DX: A41.9 Sepsis, unspecified organism (principal); U07.1 COVID-19; E11.10 Type 2 diabetes mellitus with ketoacidosis without coma; G93.41 Metabolic encephalopathy; B37.49 Other urogenital candidiasis; L02.31 Cutaneous abscess of buttock; L03.317 Cellulitis of buttock; E87.0 Hyperosmolality and hypernatremia; R65.20 Severe sepsis without septic shock; I10 Essential (primary) hypertension; Z83.3 Family history of diabetes mellitus; Z82.49 Family history of ischemic heart disease and other diseases of the circulatory system; D25.9 Leiomyoma of uterus, unspecified; R13.10 Dysphagia, unspecified; E87.6 Hypokalemia; I46.9 Cardiac arrest, cause unspecified
CPT/HCPCS: 36415; 70450; 71045; 74177; 80048; 80053; 80320; 82140; 82805; 82962; 83036; 83735; 84100; 85025; 85610; 87040; G0378; J3480; J3490; Q0162; Q9967; G0480; J0171; J0295; J0461; J0692; J1450; J1644; J1815; J2270; J3370; J7030; J7040; J7070; U0003